=== PATIENT | male | born 1965 | race African-American/Black ===

== ENCOUNTER 2017-01-09 22:08 | Emergency (ER) | payer MEDICARE, OTHER ==
[~2017-01-09] VITALS: Ht 185.4 cm; Wt 102.5 kg
[~2017-01-09 22:08] MED LIST: ASPIRIN81 MG ORAL; ATENOLOL50 MG ORAL; AZITHROMYCIN250 MG ORAL; BIAXIN500 MG ORAL; CIPRO500 MG PO; COLACE100 MG PO; GOLYTELY4000 ML GT; IBUPROFEN600 MG ORAL; NKM; NORCO 10/3251 EA ORAL; NORVASC10 MG ORAL; NORVIR100 M2 ORAL; OXYCODONE HCL30 MG PO; PHENERGAN6.25 MG/5 ORAL; PREZISTA800 MG PO; SENNA LAX8.6 MG PO; TIVICAY50 MG ORAL; TRUVADA1 TAB PO; ZITHROMAX250 MG ORAL; [UNRECOGNIZED DRUG - REMARK]
[2017-01-09] MEDS ORDERED: FLONASE ALLERG9.9 ML NS (22:39)
--- NOTE | 2017-01-09 22:39 | Emergency Room Report ---
History of Present Illness General Chief Complaint: Upper Respiratory Illness Source: Patient Present Illness [facility] This is a 51-year-old male with a history HIV. CD4 count is 258. Viral load is undetectable. He presents with chief complaint of right nose and congestion. Onset yesterday. No fever chills but no nausea no vomiting. Worse with laying flat. Better when he stood up. No other complaint. Allergies: Coded Allergies: No Known Allergies (Verified Allergy, Unknown, 11/27/07) Patient History Past Medical History: see triage record, old chart reviewed, HIV Past Surgical History: none Pertinent Family History: none Social History: Reports: smoking Immunizations: other Reviewed Nursing Documentation: PMH: Agreed, PSxH: Agreed Nursing Documentation-PMH Past Medical History: No History, Except For Hx Cardiac Problems: Yes - HIV Hx Hypertension: Yes Hx Pacemaker: No Hx Asthma: No Hx COPD: No Hx Diabetes: No Hx Cancer: No Hx Gastrointestinal Problems: No Hx Dialysis: No Hx Neurological Problems: No Hx Cerebrovascular Accident: No Hx Seizures: No Review of Systems Eye: Denies: blurred vision, eye pain ENT: Reports: nose congestion, Denies: ear pain, throat swelling Respiratory: Reports: cough, Denies: shortness of breath Cardiovascular: Denies: chest pain, palpitations Gastrointestinal: Denies: abdominal pain, diarrhea, nausea, vomiting Musculoskeletal: Denies: back pain, joint pain Skin: Denies: rash Neurological: Denies: headache, numbness Endocrine: Denies: increased thirst, increased urine Hematologic/Lymphatic: Denies: easy bruising All Other Systems: negative except mentioned in HPI Physical Exam Vital Signs Date Time Temp Pulse Resp B/P Pulse Ox O2 Delivery O2 Flow Rate FiO2 01/09/17 22:15 97.9 85 16 168/109 100 Room Air vitals showed hypertension Sp02 EP Interpretation: reviewed, normal General Appearance: well appearing, no apparent distress, alert Head: normocephalic, atraumatic Eyes: bilateral eye EOMI, bilateral eye PERRL ENT: hearing grossly normal, normal pharynx, other - nasal turbinates with edema Neck: full range of motion, supple, no meningismus Respiratory: chest non-tender, lungs clear, normal breath sounds Cardiovascular #1: regular rate, rhythm, no murmur Gastrointestinal: normal bowel sounds, non tender, no mass, no organomegaly, no bruit, non-distended Musculoskeletal: back normal, gait/station normal, normal range of motion Psychiatric: mood/affect normal Skin: warm/dry Medical Decision Making Diagnostic Impression: Primary Impression: Upper respiratory infection Qualified Codes: J06.9 - Acute upper respiratory infection, unspecified; B97.89 - Other viral agents as the cause of diseases classified elsewhere Additional Impression: Hypertension Qualified Codes: I10 - Essential (primary) hypertension ER Course Patient with a viral illness. No evidence of bacterial infection. We'll discharge home. Patient is using Afrin. Told to stop. Last Vital Signs Date Time Temp Pulse Resp B/P Pulse Ox O2 Delivery O2 Flow Rate FiO2 01/09/17 22:15 97.9 85 16 168/109 100 Room Air Status: improved Disposition: HOME, SELF-CARE Condition: Stable Scripts Fluticasone Propionate (Flonase Allergy Relief) 9.9 Ml [place].susp 9.9 ML NS BID, #1 UNIT Prov: MAGO ANDERSON M.D. 01/09/17 Patient Instructions: Upper Respiratory Infection, Adult Additional Instructions: Stop using Afrin. Followup with your DrJuan in 7 days. Return if symptom worsen. MAGO ANDERSON M.D. Jan 09, 2017 22:39
[2017-01-09 22:40] VITALS: BP 168/109
[2017-01-09 22:47] VITALS: BP 168/109
== END 2017-01-09 22:47 | disposition home or self-care (01) ==
LOC: EMR 22:32
DX: J06.9 Acute upper respiratory infection, unspecified (principal); B97.89 Other viral agents as the cause of diseases classified elsewhere; I10 Essential (primary) hypertension; F17.200 Nicotine dependence, unspecified, uncomplicated
CPT/HCPCS: 99283

== ENCOUNTER 2017-02-17 19:41 | Emergency (ER) | payer MEDICARE, OTHER ==
[~2017-02-17] VITALS: Ht 185.4 cm; Wt 102.1 kg
[~2017-02-17 19:41] MED LIST changes: +FLONASE ALLERG9.9 ML NS
[2017-02-17 20:16] VITALS: BP 154/67
[2017-02-17] MEDS ORDERED: VIBRAMYCIN100 MG ORAL (20:39)
[2017-02-17] MEDS ORDERED: Lidocaine 1% MPF 10mg/ml 5ml ONE (20:51)
[2017-02-17 21:01] VITALS: BP 154/67
[2017-02-17 23:01] LABS: APPEARANCE,URINE CLEAR; KETONES,URINE NEGATIVE (NEGATIVE); LEUKOCYTE ESTERASE ,URINE NEGATIVE (NEGATIVE); NITRITE,URINE NEGATIVE (NEGATIVE); PH,URINE 5 (4.5-8.0); PROTEIN,URINE 3+ (NEGATIVE); UROBILINOGEN,URINE NORMAL MG/DL (0.0-1.0)
[2017-02-17 23:26] LABS: BACTERIA,URINE FEW /HPF; CALCIUM OXALATE CRYSTALS,UR MODERATE /LPF; RBC,URINE TNTC /HPF (0 - 0); SQUAMOUS EPITHELIAL CELL,UR FEW /LPF (NONE/OCC); WBC,URINE 0-2 /HPF (0 - 0)
--- NOTE | 2017-02-18 13:31 | Emergency Room Report ---
History of Present Illness General Chief Complaint: Male Urogenital Problems Source: Patient Present Illness HPI Patient is a 51-year-old male who presented after increased blood in ejaculate. The patient stated that he was recently having unprotected sex when he had noticed there was some blood in his ejaculate. Patient had had not been having urinary symptoms prior to this. He denied any hematuria. He denied any pain. Patient prior history of HIV. Patient stated that he was being followed by Dr. Lozano. He denied any fever. He denied dysuria or urinary frequency or hesitancy. The patient had not noticed any penile injury or lesions. Allergies: Coded Allergies: No Known Allergies (Verified Allergy, Unknown, 11/27/07) Patient History Past Medical History: see triage record Reviewed Nursing Documentation: PMH: Agreed, PSxH: Agreed Nursing Documentation-PMH Past Medical History: No History, Except For Hx Cardiac Problems: Yes - HIV Hx Hypertension: Yes Hx Pacemaker: No Hx Asthma: No Hx COPD: No Hx Diabetes: No Hx Cancer: No Hx Gastrointestinal Problems: No Hx Dialysis: No Hx Neurological Problems: No Hx Cerebrovascular Accident: No Hx Seizures: No Review of Systems All Other Systems: negative except mentioned in HPI Physical Exam Vital Signs Date Time Temp Pulse Resp B/P Pulse Ox O2 Delivery O2 Flow Rate FiO2 02/17/17 19:45 98.1 91 15 159/69 98 Room Air General Appearance: well appearing, no apparent distress, alert, GCS 15 Head: normocephalic, atraumatic ENT: hearing grossly normal, normal voice Neck: full range of motion, supple Respiratory: no respiratory distress, speaking full sentences Gastrointestinal: normal inspection Genitourinary: normal inspection, penis normal - uncircumcised Musculoskeletal: no calf tenderness Neurologic: normal inspection, alert, oriented x3, responsive, barrel cooper III-XII nml as tested, motor strength/tone normal, normal gait Psychiatric: normal inspection, mood/affect normal Skin: no rash Medical Decision Making Diagnostic Impression: Primary Impression: Prostatitis, acute ER Course Patient presented for blood in ejaculate. Differential diagnosis included was not limited to prostatitis, torsion, ureteral stone, urinary tract infection, benign prostatic hypertrophy, cancer. The patient was noted to have recent unprotected intercourse. Patient is being treated with medications for possible sexual transmitted infection. Patient is advised followup with urology for further evaluation of blood in ejaculate. The patient is advised to return if he began having increased pain fever or other concerns Labs Test 02/17/17 20:18 Urine Color Yellow Urine Appearance Clear Urine pH 5 (4.5-8.0) Urine Specific [place] 1.025 (1.005-1.035) Urine Protein 3+ (NEGATIVE) Urine Glucose (UA) Negative (NEGATIVE) Urine Ketones Negative (NEGATIVE) Urine Occult Blood 5+ (NEGATIVE) Urine Nitrite Negative (NEGATIVE) Urine Bilirubin Negative (NEGATIVE) Urine Urobilinogen Normal MG/DL (0.0-1.0) Urine Leukocyte Esterase Negative (NEGATIVE) Urine RBC Tntc /HPF (0 - 0) Urine WBC 0-2 /HPF (0 - 0) Urine Squamous Epithelial Cells Few /LPF (NONE/OCC) Urine Calcium Oxalate Crystals Moderate /LPF (NONE) Urine Bacteria Few /HPF (NONE) Last Vital Signs Date Time Temp Pulse Resp B/P Pulse Ox O2 Delivery O2 Flow Rate FiO2 02/17/17 21:01 97.9 87 17 154/67 98 Room Air Status: improved Disposition: HOME, SELF-CARE Condition: Stable Scripts Doxycycline Hyclate* (VIBRAMYCIN*) 100 Mg Capsule 100 MG ORAL EVERY 12 HOURS, #28 CAP 0 Refills Prov: Pernell Banks 02/17/17 Referrals: NON PHYSICIAN (PCP) Patient Instructions: Prostatitis, [id number] Pernell Banks Feb 18, 2017 13:31
== END 2017-02-17 21:02 | disposition home or self-care (01) ==
LOC: EMR 20:01
DX: N41.0 Acute prostatitis (principal); I10 Essential (primary) hypertension
CPT/HCPCS: 81003; 96372; 99283; J0696

== ENCOUNTER 2017-09-10 23:46 | Emergency (ER) | payer MEDICARE, OTHER ==
[~2017-09-10] VITALS: Ht 185.4 cm; Wt 99.8 kg
[~2017-09-10 23:46] MED LIST changes: +VIBRAMYCIN100 MG ORAL
[2017-09-10 23:55] VITALS: BP 116/95
[2017-09-10] MEDS ORDERED: NKM (23:56)
[2017-09-11] MEDS ORDERED: Ketorolac 60mg Inj IM ONE (00:45)
[2017-09-11 01:31] LABS: APPEARANCE,URINE CLEAR; KETONES,URINE NEGATIVE (NEGATIVE); LEUKOCYTE ESTERASE ,URINE NEGATIVE (NEGATIVE); NITRITE,URINE NEGATIVE (NEGATIVE); PH,URINE 5 (4.5-8.0); PROTEIN,URINE 2+ (NEGATIVE); UROBILINOGEN,URINE 1 MG/DL (0.0-1.0)
[2017-09-11] MEDS ORDERED: BACTRIM-DS1 EA ORAL (01:32)
[2017-09-11] MEDS ORDERED: KEFLEX500 MG ORAL (01:32)
[2017-09-11] MEDS ORDERED: LIDOCAINE700 M1 TP (01:35)
[2017-09-11 01:45] VITALS: BP 116/95
[2017-09-11 01:47] LABS: BACTERIA,URINE OCCASIONAL /HPF; MUCUS,URINE FEW /LPF (NONE/OCC); RBC,URINE 0-2 /HPF (0 - 0); SQUAMOUS EPITHELIAL CELL,UR OCCASIONAL /LPF (NONE/OCC); WBC,URINE 0-2 /HPF (0 - 0)
--- NOTE | 2017-09-11 06:50 | Emergency Room Report ---
History of Present Illness General Chief Complaint: Lower Back Pain or Injury Source: Patient Present Illness HPI Patient said it-year-old male who presented after increased low back pain as well as right elbow pain. Patient reported having gradual onset of symptoms. He had prior history of HIV. He denied any fever. He reported having increased discomfort to his right elbow which had gradual onset. He denied any recent trauma. The patient reports having undetectable viral load as well as adequate T-cell count he cannot given number. Patient states that he had been having pain to his elbow the which is worse with movement. The patient denies any bowel or bladder dysfunction. He denies any numbness or weakness to his lower extremities Allergies: Coded Allergies: No Known Allergies (Verified Allergy, Unknown, 11/27/07) Patient History Past Medical History: see triage record Reviewed Nursing Documentation: PMH: Agreed, PSxH: Agreed Nursing Documentation-PMH Past Medical History: No History, Except For Hx Hypertension: Yes Hx Pacemaker: No Hx Asthma: No Hx COPD: No Hx Diabetes: No Hx Cancer: No Hx Gastrointestinal Problems: No Hx Dialysis: No Hx Neurological Problems: No Hx Cerebrovascular Accident: No Hx Seizures: No Review of Systems All Other Systems: negative except mentioned in HPI Physical Exam Vital Signs Date Time Temp Pulse Resp B/P (MAP) Pulse Ox O2 Delivery O2 Flow Rate FiO2 09/10/17 23:53 98.8 91 18 116/95 95 Room Air General Appearance: well appearing, no apparent distress, alert, GCS 15 Head: normocephalic, atraumatic ENT: hearing grossly normal, normal voice Neck: full range of motion, supple Respiratory: no respiratory distress, speaking full sentences Cardiovascular #1: normal inspection, normal peripheral pulses Gastrointestinal: normal inspection, normal bowel sounds, non tender, soft Musculoskeletal: normal inspection, no calf tenderness Neurologic: normal inspection, alert, oriented x3, responsive, manufacturing analyst III-XII nml as tested, normal gait Psychiatric: mood/affect normal Skin: other - right elbow skin induration, erythema Medical Decision Making Diagnostic Impression: Primary Impression: Low back pain Additional Impression: Cellulitis of right elbow ER Course Patient presented for back pain. Differential diagnosis included but was not limited to herniated disc, cauda equina syndrome, abdominal aortic aneurysm, perforated ulcer, spinal epidural abscess, spinal stenosis, lumbar fracture, metastatic lesion, pyelonephritis. The patient was noted to have evidence of cellulitis to his right upper extremity near the elbow consistent with cellulitis versus early abscess. There does not appear to be any fluctuance at this time. The patient was given prescription for oral antibiotics. Patient was advised to have the wound rechecked in the next one to 2 days. The patient is advised to return if she began having increased difficulty with urination persistent vomiting high fevers or other concerns. Last Vital Signs Date Time Temp Pulse Resp B/P (MAP) Pulse Ox O2 Delivery O2 Flow Rate FiO2 09/11/17 01:45 95 18 116/95 95 09/10/17 23:55 98.8 Room Air Status: improved Disposition: HOME, SELF-CARE Condition: Stable Scripts Lidocaine (Lidocaine) 1 Each Adh..patch 700 MG TP DAILY, #10 PATCH Prov: Pernell Banks 09/11/17 Cephalexin* (KEFLEX*) 500 Mg Capsule 500 MG ORAL Q6H, #28 CAP 0 Refills Prov: Pernell Banks 09/11/17 Trimethoprim/Sulfamethoxazole (Bactrim Ds Tablet) 1 Each Tablet 1 TAB ORAL TWICE A DAY, #14 TAB Prov: Pernell Banks 09/11/17 Referrals: NON PHYSICIAN (PCP) Patient Instructions: Cellulitis, Lumbosacral Strain Pernell Banks Sep 11, 2017 06:50
== END 2017-09-11 01:45 | disposition home or self-care (01) ==
LOC: EMR 09-11 01:01
DX: M54.5 Low back pain (principal); L03.113 Cellulitis of right upper limb; I10 Essential (primary) hypertension
CPT/HCPCS: 81003; 96372; 99284

== ENCOUNTER 2017-09-13 23:09 | Emergency (ER) | payer MEDICARE, OTHER ==
[~2017-09-13] VITALS: Ht 185.4 cm; Wt 104.3 kg
[~2017-09-13 23:09] MED LIST changes: +BACTRIM-DS1 EA ORAL; +KEFLEX500 MG ORAL; +LIDOCAINE700 M1 TP
[2017-09-13] MEDS ORDERED: BARACLUDE0.5 MG ORAL (23:35)
[2017-09-13 23:45] VITALS: BP 157/89
[2017-09-14 00:21] LABS: EOSINOPHILS % (AUTO) 0.9 % (0.0-3.0); LYMPHOCYTES % (AUTO) 32.1 % (20.0-45.0); MEAN CORPUSCULAR HEMOGLOBIN 30.7 PG (27.0-31.0); MEAN CORPUSCULAR HGB CONC 33.4 G/DL (32.0-36.0); MEAN CORPUSCULAR VOLUME 92 FL (80-99); MEAN PLATELET VOLUME 7.8 FL (6.5-10.1); NEUTROPHILS % (AUTO) 59.9 % (45.0-75.0); PLATELET COUNT 266 K/UL (150-450); RED BLOOD COUNT 4.98 M/UL (4.70-6.10); RED CELL DISTRIBUTION WIDTH 13.6 % (11.6-14.8); WHITE BLOOD COUNT 6.8 K/UL (4.8-10.8)
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
[2017-09-14 00:54] LABS: ALANINE AMINOTRANSFERASE 28 U/L (12-78); ALBUMIN/GLOBULIN RATIO 0.9 (1.0-2.7); ANION GAP 12 mmol/L (5-15); ASPARTATE AMINO TRANSFERASE 25 U/L (15-37); CALCIUM 9.3 MG/DL (8.5-10.1); CARBON DIOXIDE 23 MMOL/L (21-32); CHLORIDE 105 MMOL/L (98-107); CREATININE 1.9 MG/DL (0.55-1.30); GLOMERULAR FILTRATION RATE 45.3 mL/min (>60); LIPASE 134 U/L (73-393); POTASSIUM 3.9 MMOL/L (3.5-5.1); SODIUM 140 MMOL/L (136-145); TOTAL PROTEIN 7.8 G/DL (6.4-8.2)
[2017-09-14 01:01] LABS: APPEARANCE,URINE CLEAR; KETONES,URINE NEGATIVE (NEGATIVE); LEUKOCYTE ESTERASE ,URINE NEGATIVE (NEGATIVE); NITRITE,URINE NEGATIVE (NEGATIVE); PH,URINE 5 (4.5-8.0); PROTEIN,URINE 1+ (NEGATIVE); UROBILINOGEN,URINE 1 MG/DL (0.0-1.0)
[2017-09-14 01:18] LABS: BACTERIA,URINE OCCASIONAL /HPF; RBC,URINE 0-2 /HPF (0 - 0); SQUAMOUS EPITHELIAL CELL,UR OCCASIONAL /LPF (NONE/OCC); WBC,URINE 0-2 /HPF (0 - 0)
[2017-09-14 01:45] VITALS: BP 152/86
[2017-09-14 03:45] VITALS: BP 144/77
[2017-09-14] MEDS ORDERED: COLACE100 MG ORAL (03:56)
[2017-09-14] MEDS ORDERED: SENNA LAXATIVE8.6 MG PO (03:56)
[2017-09-14 04:00] VITALS: BP 144/77
[2017-09-14] MEDS ORDERED: Fleet's Enema 133ml RECTAL ONE (04:00)
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
--- NOTE | 2017-09-16 18:41 | Cardiology Report ---
APPROVED REPORT EKG Measurement Heart [id number] Normal sinus rhythm Possible Left atrial enlargement Left ventricular hypertrophy T wave abnormality, consider lateral ischemia Abnormal ECG
== END 2017-09-14 04:00 | disposition home or self-care (01) ==
LOC: EMR 23:50
DX: K59.00 Constipation, unspecified (principal); I10 Essential (primary) hypertension; K80.20 Calculus of gallbladder without cholecystitis without obstruction
CPT/HCPCS: 36415; 74176; 80053; 81003; 83690; 84484; 85025; 93005; 99284

== ENCOUNTER 2018-09-28 03:00 | Inpatient (IN) | payer MEDICARE, OTHER ==
[~2018-09-28] VITALS: Ht 185.4 cm; Wt 104.3 kg
[~2018-09-28 03:00] MED LIST changes: +BARACLUDE0.5 MG ORAL; +COLACE100 MG ORAL; +SENNA LAXATIVE8.6 MG PO
[2018-09-28 03:23] VITALS: BP 165/107
[2018-09-28] MEDS ORDERED: cefTRIAXone 1 GM in NS 55 ML IVPB ONE (03:30)
--- NOTE | 2018-09-28 03:45 | Emergency Room Report ---
History of Present Illness General Chief Complaint: Dyspnea/Respdistress Source: Patient Present Illness HPI Patient started having a sore throat earlier. He went to see a movie. He went back home started having shortness of breath when he went to bed. He felt that he was suffocating. He felt his heart pounding. There is tingling around his mouth. Although sensations made him come to be evaluated. He denies having hyperventilation in the past. He was quite concerned and scared at the moment. He feels better now. The throat is still sore. He's also been coughing up yellow phlegm. The patient is HIV positive and is taking medication. He states his viral load is non-detected. The patient has a history of hypertension and did not take his medication today. No recent cardiac evaluations. No NVD, dysuria, rashes. Allergies: Coded Allergies: No Known Allergies (Verified Allergy, Unknown, 11/27/07) Patient History Past Medical History: see triage record Social History: Denies: smoking Social History Narrative at home Reviewed Nursing Documentation: PMH: Agreed; PSxH: Agreed Nursing Documentation-PMH Hx Hypertension: Yes Hx Pacemaker: No Hx Asthma: No Hx COPD: No Hx Diabetes: No Hx Cancer: No Hx Gastrointestinal Problems: No Hx Dialysis: No Hx Neurological Problems: Yes - HIV Hx Cerebrovascular Accident: No Hx Seizures: No Review of Systems All Other Systems: negative except mentioned in HPI Physical Exam Vital Signs Date Time Temp Pulse Resp B/P (MAP) Pulse Ox O2 Delivery O2 Flow Rate FiO2 09/28/18 03:02 97.9 91 18 187/123 94 Room Air Sp02 EP Interpretation: reviewed, normal General Appearance: well appearing, no apparent distress, GCS 15 Head: normocephalic Eyes: bilateral eye normal inspection, bilateral eye PERRL ENT: moist mucus membranes Neck: supple Respiratory: lungs clear, normal breath sounds Cardiovascular #1: regular rate, rhythm Cardiovascular #2: 2+ radial (R) Gastrointestinal: normal inspection, normal bowel sounds, non tender, no mass, non-distended Genitourinary: no CVA tenderness Musculoskeletal: back normal, gait/station normal, normal range of motion Neurologic: alert, oriented x3, grossly normal Psychiatric: mood/affect normal Skin: normal inspection, warm/dry Medical Decision Making Diagnostic Impression: Primary Impression: Dyspnea Qualified Codes: R06.00 - Dyspnea, unspecified Additional Impressions: ACS (acute coronary syndrome) Strep pharyngitis HIV (human immunodeficiency virus infection) Renal insufficiency ER Course Patient presents with dyspnea and productive cough and sore throat. I differential includes pneumonia, bronchitis, pharyngitis, viral syndrome, anxiety and hyperventilation. Evaluation will be with EKG, chest x-ray and labs. The patient will be treated with Rocephin as the pharyngitis clearly looks like Streptococcus. Many of the symptoms have improved and the patient's not tachycardic and oxygen saturation suggests this is not a pulmonary embolus. EKG normal sinus rhythm with voltage criteria for left ventricular hypertrophy and ST and T-wave abnormality with T inversions inferior laterally. Normal intervals. This EKG is different from 09/13/17. There were no ST inversions inferiorly. Due to this and his presenting complaints, needs to have ACS r/o. Initial troponin neg (0.33). CXR clear. Discussed with Dr. Aguilar - information technology intern for Dr. Cleveland. Admit tele. BP still high after 1st metoprolol. Second given. Labs Test 09/28/18 03:40 09/28/18 04:11 09/28/18 04:34 09/28/18 09:00 White Blood Count 5.6 K/UL (4.8-10.8) 4.4 K/UL (4.8-10.8) Red Blood Count 5.33 M/UL (4.70-6.10) 5.03 M/UL (4.70-6.10) Hemoglobin 15.8 G/DL (14.2-18.0) 14.8 G/DL (14.2-18.0) Hematocrit 45.1 % (42.0-52.0) 43.4 % (42.0-52.0) Mean Corpuscular Volume 85 FL (80-99) 86 FL (80-99) Mean Corpuscular Hemoglobin 29.7 PG (27.0-31.0) 29.4 PG (27.0-31.0) Mean Corpuscular Hemoglobin Concent 35.0 G/DL (32.0-36.0) 34.1 G/DL (32.0-36.0) Red Cell Distribution Width 12.5 % (11.6-14.8) 12.7 % (11.6-14.8) Platelet Count 245 K/UL (150-450) 235 K/UL (150-450) Mean Platelet Volume 7.7 FL (6.5-10.1) 7.3 FL (6.5-10.1) Neutrophils (%) (Auto) 43.4 % (45.0-75.0) 44.3 % (45.0-75.0) Lymphocytes (%) (Auto) 45.0 % (20.0-45.0) 43.9 % (20.0-45.0) Monocytes (%) (Auto) 8.5 % (1.0-10.0) 8.2 % (1.0-10.0) Eosinophils (%) (Auto) 1.7 % (0.0-3.0) 2.3 % (0.0-3.0) Basophils (%) (Auto) 1.4 % (0.0-2.0) 1.3 % (0.0-2.0) Sodium Level 139 MMOL/L (136-145) Potassium Level 3.4 MMOL/L (3.5-5.1) Chloride Level 106 MMOL/L (98-107) Carbon Dioxide Level 27 MMOL/L (21-32) Anion Gap 6 mmol/L (5-15) Blood Urea Nitrogen 19 mg/dL (7-18) Creatinine 1.8 MG/DL (0.55-1.30) Estimat Glomerular Filtration Rate 48.1 mL/min (>60) Glucose Level 118 MG/DL (74-106) Calcium Level 9.2 MG/DL (8.5-10.1) Total Bilirubin 0.4 MG/DL (0.2-1.0) Aspartate Amino Transf (AST/SGOT) 20 U/L (15-37) Alanine Aminotransferase (ALT/SGPT) 27 U/L (12-78) Alkaline Phosphatase 66 U/L (46-116) Total Creatine Kinase 407 U/L (26-308) Troponin I 0.033 ng/mL (0.000-0.056) 0.020 ng/mL (0.000-0.056) C-Reactive Protein, Quantitative < 0.4 mg/dL (0.00-0.90) Pro-B-Type Natriuretic Peptide 125 pg/mL (0-125) Total Protein 7.6 G/DL (6.4-8.2) Albumin 3.8 G/DL (3.4-5.0) Globulin 3.8 g/dL Albumin/Globulin Ratio 1.0 (1.0-2.7) Prothrombin Time 11.1 SEC (9.30-11.50) Prothromb Time International Ratio 1.1 (0.9-1.1) Activated Partial Thromboplast Time 29 SEC (23-33) Urine Color Pale yellow Urine Appearance Clear Urine pH 5 (4.5-8.0) Urine Specific [place] 1.020 (1.005-1.035) Urine Protein Negative (NEGATIVE) Urine Glucose (UA) Negative (NEGATIVE) Urine Ketones Negative (NEGATIVE) Urine Blood Negative (NEGATIVE) Urine Nitrite Negative (NEGATIVE) Urine Bilirubin Negative (NEGATIVE) Urine Urobilinogen Normal MG/DL (0.0-1.0) Urine Leukocyte Esterase Negative (NEGATIVE) Urine Opiates Screen Negative (NEGATIVE) Urine Barbiturates Screen Negative (NEGATIVE) Phencyclidine (PCP) Screen Negative (NEGATIVE) Urine Amphetamines Screen Negative (NEGATIVE) Urine Benzodiazepines Screen Negative (NEGATIVE) Urine Cocaine Screen Negative (NEGATIVE) Urine Marijuana (THC) Screen Negative (NEGATIVE) Test 09/28/18 12:00 09/29/18 06:18 Lactate Dehydrogenase 179 U/L (81-234) Sodium Level 142 MMOL/L (136-145) Potassium Level 4.0 MMOL/L (3.5-5.1) Chloride Level 106 MMOL/L (98-107) Carbon Dioxide Level 24 MMOL/L (21-32) Anion Gap 12 mmol/L (5-15) Blood Urea Nitrogen 18 mg/dL (7-18) Creatinine 1.8 MG/DL (0.55-1.30) Estimat Glomerular Filtration Rate 48.1 mL/min (>60) Glucose Level 92 MG/DL (74-106) Calcium Level 9.0 MG/DL (8.5-10.1) Troponin I 0.017 ng/mL (0.000-0.056) EKG Diagnostic Results Rate: normal Rhythm: NSR ST Segments: no acute changes - ST inversions inferolateral, LVH Rhythm Strip Diag. Results EP Interpretation: yes Rhythm: NSR, no PVC's, no ectopy Chest X-Ray Diagnostic Results Chest X-Ray Diagnostic Results : Chest X-Ray Ordered: Yes # of Views/Limited/Complete: 1 View Indication: Shortness of Breath EP Interpretation: Yes Interpretation: no consolidation, no effusion, no pneumothorax Impression: No acute disease Electronically Signed by: Electronically signed by Rodger Morse MD Status: improved Disposition: ADMITTED INPATIENT Condition: Serious Referrals: NOT CHOSEN IPA/,REFERRING (PCP) Rodger Morse MD Sep 28, 2018 03:45
[2018-09-28 03:53] LABS: BASOPHILS % (AUTO) 1.4 % (0.0-2.0); EOSINOPHILS % (AUTO) 1.7 % (0.0-3.0); HEMATOCRIT 45.1 % (42.0-52.0); HEMOGLOBIN 15.8 G/DL (14.2-18.0); MEAN CORPUSCULAR VOLUME 85 FL (80-99); MONOCYTES % (AUTO) 8.5 % (1.0-10.0); NEUTROPHILS % (AUTO) 43.4 % (45.0-75.0); PLATELET COUNT 245 K/UL (150-450); RED BLOOD COUNT 5.33 M/UL (4.70-6.10); RED CELL DISTRIBUTION WIDTH 12.5 % (11.6-14.8); WHITE BLOOD COUNT 5.6 K/UL (4.8-10.8)
[2018-09-28] MEDS ORDERED: Metoprolol 5mg/5ml Inj IVP STA ×2 (03:58→04:47)
[2018-09-28] MEDS ORDERED: Nitroglycerin 2% oint pkt TOPIC ONE (04:00)
[2018-09-28 04:09] LABS: ANION GAP 6 mmol/L (5-15); BLOOD UREA NITROGEN 19 mg/dL (7-18); CALCIUM 9.2 MG/DL (8.5-10.1); CARBON DIOXIDE 27 MMOL/L (21-32); CHLORIDE 106 MMOL/L (98-107); CREATININE 1.8 MG/DL (0.55-1.30); POTASSIUM 3.4 MMOL/L (3.5-5.1); SODIUM 139 MMOL/L (136-145)
[2018-09-28 04:20] LABS: ALANINE AMINOTRANSFERASE 27 U/L (12-78); ALBUMIN 3.8 G/DL (3.4-5.0); ALKALINE PHOSPHATASE 66 U/L (46-116); ASPARTATE AMINO TRANSFERASE 20 U/L (15-37); BILIRUBIN,TOTAL 0.4 MG/DL (0.2-1.0); CREATINE KINASE 407 U/L (26-308)
--- NOTE | 2018-09-28 04:21 | Diagnostic Imaging Report ---
EXAM: XR Chest, 1 View CLINICAL HISTORY: DYSPNEA TECHNIQUE: Frontal view of the chest. COMPARISON: No relevant prior studies available. FINDINGS: Lungs: Unremarkable. No consolidation. Pleural space: Unremarkable. No pneumothorax. Heart: Unremarkable. No cardiomegaly. Mediastinum: Unremarkable. Bones/joints: Unremarkable. Soft tissues: Possible retained metallic foreign bodies are seen projecting over the left chest. IMPRESSION: No acute cardiopulmonary findings. Possible retained metallic foreign bodies are seen projecting over the left chest.
[2018-09-28 04:41] LABS: INR 1.1 (0.9-1.1)
[2018-09-28 04:46] LABS: APPEARANCE,URINE CLEAR; BILIRUBIN, URINE NEGATIVE (NEGATIVE); COLOR,URINE PALE YELLOW; GLUCOSE, URINE (UA) NEGATIVE (NEGATIVE); KETONES,URINE NEGATIVE (NEGATIVE); LEUKOCYTE ESTERASE ,URINE NEGATIVE (NEGATIVE); NITRITE,URINE NEGATIVE (NEGATIVE); PH,URINE 5 (4.5-8.0); PROTEIN,URINE NEGATIVE (NEGATIVE); UROBILINOGEN,URINE NORMAL MG/DL (0.0-1.0)
[2018-09-28] MEDS ORDERED: Nitroglycerin Subl 0.4mg tab SL PRN (05:15)
[2018-09-28] MEDS ORDERED: Heparin 25,000u/D5W 500ml 500 ML IV SCH (05:15)
[2018-09-28] MEDS ORDERED: Albuterol/Ipratropium 3ml neb HHN PRN (05:15)
[2018-09-28 05:20] VITALS: BP 156/89
[2018-09-28 08:00] VITALS: BP 154/96
[2018-09-28] MEDS: Heparin 5000 units/ml inj SUBQ SCH ×2 (08:49→20:43)
[2018-09-28 10:08] LABS: BASOPHILS % (AUTO) 1.3 % (0.0-2.0); EOSINOPHILS % (AUTO) 2.3 % (0.0-3.0); HEMATOCRIT 43.4 % (42.0-52.0); HEMOGLOBIN 14.8 G/DL (14.2-18.0); LYMPHOCYTES % (AUTO) 43.9 % (20.0-45.0); MEAN CORPUSCULAR VOLUME 86 FL (80-99); MONOCYTES % (AUTO) 8.2 % (1.0-10.0); NEUTROPHILS % (AUTO) 44.3 % (45.0-75.0); PLATELET COUNT 235 K/UL (150-450); RED BLOOD COUNT 5.03 M/UL (4.70-6.10); RED CELL DISTRIBUTION WIDTH 12.7 % (11.6-14.8); WHITE BLOOD COUNT 4.4 K/UL (4.8-10.8)
--- NOTE | 2018-09-28 11:36 | Infectious Diseases Prog Note ---
Assessment/Plan Assessment/Plan Full consult to follow: A) 1) sob, cp, congestion, pharyngitis, ? cap 2) EKG changes, rule out mi 3) hiv, ? cd4, ? viral load P) 1) rocephin 2) check f/u chest x-ray, ldh, labs, throat culture, cd4, viral load 3) cardiology work-up 4) d/w Dr. Herrera 5) thank you Subjective Allergies: Coded Allergies: No Known Allergies (Verified Allergy, Unknown, 11/27/07) Objective Vital Signs Last 24 Hour Vital Signs Date Time Temp Pulse Resp B/P (MAP) Pulse Ox O2 Delivery O2 Flow Rate FiO2 09/28/18 09:11 Room Air 09/28/18 08:00 79 16 Room Air 21 09/28/18 08:00 97.9 63 18 154/96 (115) 96 09/28/18 08:00 65 09/28/18 06:19 Room Air 09/28/18 06:10 Room Air 09/28/18 05:20 97.9 84 18 153/108 94 Room Air 09/28/18 05:20 97.2 65 18 156/89 (111) 98 09/28/18 05:04 81 155/109 09/28/18 04:22 85 166/107 09/28/18 04:22 166/107 09/28/18 03:23 97.9 83 18 165/107 94 Room Air 09/28/18 03:23 85 18 Room Air 09/28/18 03:02 97.9 91 18 187/123 94 Room Air Height (Feet): 6 Height (Inches): 1.00 Weight (Pounds): 230 Laboratory Tests Test 09/28/18 03:40 09/28/18 04:11 09/28/18 04:34 09/28/18 09:00 White Blood Count 5.6 K/UL (4.8-10.8) 4.4 K/UL (4.8-10.8) L Red Blood Count 5.33 M/UL (4.70-6.10) 5.03 M/UL (4.70-6.10) Hemoglobin 15.8 G/DL (14.2-18.0) 14.8 G/DL (14.2-18.0) Hematocrit 45.1 % (42.0-52.0) 43.4 % (42.0-52.0) Mean Corpuscular Volume 85 FL (80-99) 86 FL (80-99) Mean Corpuscular Hemoglobin 29.7 PG (27.0-31.0) 29.4 PG (27.0-31.0) Mean Corpuscular Hemoglobin Concent 35.0 G/DL (32.0-36.0) 34.1 G/DL (32.0-36.0) Red Cell Distribution Width 12.5 % (11.6-14.8) 12.7 % (11.6-14.8) Platelet Count 245 K/UL (150-450) 235 K/UL (150-450) Mean Platelet Volume 7.7 FL (6.5-10.1) 7.3 FL (6.5-10.1) Neutrophils (%) (Auto) 43.4 % (45.0-75.0) L 44.3 % (45.0-75.0) L Lymphocytes (%) (Auto) 45.0 % (20.0-45.0) 43.9 % (20.0-45.0) Monocytes (%) (Auto) 8.5 % (1.0-10.0) 8.2 % (1.0-10.0) Eosinophils (%) (Auto) 1.7 % (0.0-3.0) 2.3 % (0.0-3.0) Basophils (%) (Auto) 1.4 % (0.0-2.0) 1.3 % (0.0-2.0) Sodium Level 139 MMOL/L (136-145) Potassium Level 3.4 MMOL/L (3.5-5.1) L Chloride Level 106 MMOL/L (98-107) Carbon Dioxide Level 27 MMOL/L (21-32) Anion Gap 6 mmol/L (5-15) Blood Urea Nitrogen 19 mg/dL (7-18) H Creatinine 1.8 MG/DL (0.55-1.30) H Estimat Glomerular Filtration Rate 48.1 mL/min (>60) Glucose Level 118 MG/DL (74-106) H Calcium Level 9.2 MG/DL (8.5-10.1) Total Bilirubin 0.4 MG/DL (0.2-1.0) Aspartate Amino Transf (AST/SGOT) 20 U/L (15-37) Alanine Aminotransferase (ALT/SGPT) 27 U/L (12-78) Alkaline Phosphatase 66 U/L (46-116) Total Creatine Kinase 407 U/L (26-308) H Troponin I 0.033 ng/mL (0.000-0.056) 0.020 ng/mL (0.000-0.056) C-Reactive Protein, Quantitative < 0.4 mg/dL (0.00-0.90) Pro-B-Type Natriuretic Peptide 125 pg/mL (0-125) Total Protein 7.6 G/DL (6.4-8.2) Albumin 3.8 G/DL (3.4-5.0) Globulin 3.8 g/dL Albumin/Globulin Ratio 1.0 (1.0-2.7) Prothrombin Time 11.1 SEC (9.30-11.50) Prothromb Time International Ratio 1.1 (0.9-1.1) Activated Partial Thromboplast Time 29 SEC (23-33) Urine Color Pale yellow Urine Appearance Clear Urine pH 5 (4.5-8.0) Urine Specific [place] 1.020 (1.005-1.035) Urine Protein Negative (NEGATIVE) Urine Glucose (UA) Negative (NEGATIVE) Urine Ketones Negative (NEGATIVE) Urine Blood Negative (NEGATIVE) Urine Nitrite Negative (NEGATIVE) Urine Bilirubin Negative (NEGATIVE) Urine Urobilinogen Normal MG/DL (0.0-1.0) Urine Leukocyte Esterase Negative (NEGATIVE) Urine Opiates Screen Negative (NEGATIVE) Urine Barbiturates Screen Negative (NEGATIVE) Phencyclidine (PCP) Screen Negative (NEGATIVE) Urine Amphetamines Screen Negative (NEGATIVE) Urine Benzodiazepines Screen Negative (NEGATIVE) Urine Cocaine Screen Negative (NEGATIVE) Urine Marijuana (THC) Screen Negative (NEGATIVE) Current Medications Medications (Trade) Dose Ordered Sig/Paula Route PRN Reason Start Time Stop Time Status Last Admin Dose Admin Acetaminophen (Tylenol) 650 mg Q4H PRN ORAL Mild Pain (Pain Scale 1-3) 09/28/18 05:15 12 05:14 Albuterol/ Ipratropium (Albuterol/ Ipratropium) 3 ml NEEDED PRN HHN Shortness of Breath 09/28/18 05:15 10/03/18 05:14 Heparin Sodium (Porcine) (Heparin 5000 units/ml) 5,000 units EVERY 12 HOURS SUBQ 09/28/18 09:00 10/28/18 08:59 09/28/18 08:49 Nitroglycerin (Ntg) 0.4 mg Q5M PRN SL Prn Chest Pain 09/28/18 05:15 10/28/18 05:14 Sodium Chloride 1,000 ml @ 100 mls/hr Q10H IV 09/28/18 08:45 10/28/18 08:44 09/28/18 08:47 Digna Naidu MD Sep 28, 2018 11:36
[2018-09-28] MEDS ORDERED: Ritonavir 100mg tab ORAL SCH (11:45)
[2018-09-28] MEDS ORDERED: Dolutegravir Sodium 50mg tab ORAL SCH (11:45)
[2018-09-28 11:55] VITALS: BP 151/90
--- NOTE | 2018-09-28 12:27 | History and Physical ---
History of Present Illness General Date patient seen: Sep 28, 2018 Time patient seen: 13:00 Reason for Hospitalization: Dyspnea/Respdistress Present Illness HPI 52 yo AA Male PMH of HTN, and HIV presented for SOB and cough. Patient states that he was at the movies yesterday when he began having a coughing fit and admits to sputum. Patient also noted shortness of breath and MEREDITH. Patient deneis fevers, chills, diarrhea, abd pain, dysuria. He has not chest pain now or at the time of the event that brought him in. He recently had a follow up with his PCP and said everything was stable at that time. Patient admits to having had a cardiac cath at [facility] many years ago and did not require any intervention. Allergies: Coded Allergies: No Known Allergies (Verified Allergy, Unknown, 11/27/07) Medication History Scheduled Darunavir Ethanolate (Prezista), 800 MG PO DAILY, (Reported) Docusate Sodium* (Colace*), 100 MG ORAL DAILY Dolutegravir Sodium (Tivicay), 50 MG ORAL DAILY, (Reported) Emtricitabine/Tenofovir (Truvada 200 mg-300 mg Tablet), 300 MG PO DAILY, ( Reported) Entecavir* (Baraclude*), 1 MG ORAL DAILY, (Reported) Fluticasone Propionate (Flonase Allergy Relief), 9.9 ML NS BID Lidocaine (Lidocaine), 700 MG TP DAILY No Known Medications* (NKM - No Known Medications*), 0 ., (Reported) No Known Medications* (NKM - No Known Medications*), 0 ., (Reported) Ritonavir (Norvir), 100 MG ORAL DAILY, (Reported) Sennosides (Senna Laxative), 8.6 MG PO DAILY Miscellaneous Medications [unknown b/p med], (Reported) Discontinued Medications Azithromycin* (Zithromax*), 250 MG ORAL DAILY Discontinued Reason: Therapy completed Cephalexin* (Keflex*), 500 MG ORAL Q6H Discontinued Reason: Therapy completed Doxycycline Hyclate* (Vibramycin*), 100 MG ORAL EVERY 12 HOURS Discontinued Reason: Therapy completed Trimethoprim/Sulfamethoxazole (Bactrim Ds Tablet), 1 TAB ORAL TWICE A DAY Discontinued Reason: Therapy completed Patient History Healthcare decision maker Resuscitation status Full Code Advanced Directive on File No Past Medical/Surgical History Past Medical/Surgical History: (1) Acute bronchitis (2) Dyspnea (3) HIV (human immunodeficiency virus infection) (4) Hypertension Social History Social History: (1) Tobacco abuse Review of Systems All Other Systems: negative except mentioned in HPI Physical Exam General Appearance: WD/WN, no apparent distress, alert Lines, tubes and drains: peripheral HEENT: normocephalic, atraumatic, anicteric, mucous membranes moist, PERRL Neck: non-tender, normal alignment, supple, normal inspection, abnormal alignment Respiratory/Chest: chest wall non-tender, lungs clear, normal breath sounds, no respiratory distress, no accessory muscle use, respiratory distress Cardiovascular/Chest: normal peripheral pulses, normal rate, regular rhythm, regularly irregular, no gallop/murmur Abdomen: normal bowel sounds, non tender, soft, no organomegaly, no mass, abnormal bowel sounds Extremities: normal range of motion, non-tender, normal inspection, no calf tenderness, normal capillary refill Skin Exam: normal pigmentation, warm/dry 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, no motor/sensory deficits, alert, oriented x 3, responsive, normal mood/affect Musculoskeletal: normal muscle bulk Last 24 Hour Vital Signs Date Time Temp Pulse Resp B/P (MAP) Pulse Ox O2 Delivery O2 Flow Rate FiO2 09/28/18 11:55 98.0 61 20 151/90 (110) 95 09/28/18 09:11 Room Air 09/28/18 08:00 79 16 Room Air 21 09/28/18 08:00 97.9 63 18 154/96 (115) 96 09/28/18 08:00 65 09/28/18 06:19 Room Air 09/28/18 06:10 Room Air 09/28/18 05:20 97.9 84 18 153/108 94 Room Air 09/28/18 05:20 97.2 65 18 156/89 (111) 98 09/28/18 05:04 81 155/109 09/28/18 04:22 85 166/107 09/28/18 04:22 166/107 09/28/18 03:23 97.9 83 18 165/107 94 Room Air 09/28/18 03:23 85 18 Room Air 09/28/18 03:02 97.9 91 18 187/123 94 Room Air Intake and Output 09/27/18 09/28/18 19:00 07:00 Intake Total 0 ml Balance 0 ml Intake Oral 0 ml Laboratory Tests Test 09/28/18 03:40 09/28/18 04:11 09/28/18 04:34 09/28/18 09:00 White Blood Count 5.6 K/UL (4.8-10.8) 4.4 K/UL (4.8-10.8) L Red Blood Count 5.33 M/UL (4.70-6.10) 5.03 M/UL (4.70-6.10) Hemoglobin 15.8 G/DL (14.2-18.0) 14.8 G/DL (14.2-18.0) Hematocrit 45.1 % (42.0-52.0) 43.4 % (42.0-52.0) Mean Corpuscular Volume 85 FL (80-99) 86 FL (80-99) Mean Corpuscular Hemoglobin 29.7 PG (27.0-31.0) 29.4 PG (27.0-31.0) Mean Corpuscular Hemoglobin Concent 35.0 G/DL (32.0-36.0) 34.1 G/DL (32.0-36.0) Red Cell Distribution Width 12.5 % (11.6-14.8) 12.7 % (11.6-14.8) Platelet Count 245 K/UL (150-450) 235 K/UL (150-450) Mean Platelet Volume 7.7 FL (6.5-10.1) 7.3 FL (6.5-10.1) Neutrophils (%) (Auto) 43.4 % (45.0-75.0) L 44.3 % (45.0-75.0) L Lymphocytes (%) (Auto) 45.0 % (20.0-45.0) 43.9 % (20.0-45.0) Monocytes (%) (Auto) 8.5 % (1.0-10.0) 8.2 % (1.0-10.0) Eosinophils (%) (Auto) 1.7 % (0.0-3.0) 2.3 % (0.0-3.0) Basophils (%) (Auto) 1.4 % (0.0-2.0) 1.3 % (0.0-2.0) Sodium Level 139 MMOL/L (136-145) Potassium Level 3.4 MMOL/L (3.5-5.1) L Chloride Level 106 MMOL/L (98-107) Carbon Dioxide Level 27 MMOL/L (21-32) Anion Gap 6 mmol/L (5-15) Blood Urea Nitrogen 19 mg/dL (7-18) H Creatinine 1.8 MG/DL (0.55-1.30) H Estimat Glomerular Filtration Rate 48.1 mL/min (>60) Glucose Level 118 MG/DL (74-106) H Calcium Level 9.2 MG/DL (8.5-10.1) Total Bilirubin 0.4 MG/DL (0.2-1.0) Aspartate Amino Transf (AST/SGOT) 20 U/L (15-37) Alanine Aminotransferase (ALT/SGPT) 27 U/L (12-78) Alkaline Phosphatase 66 U/L (46-116) Total Creatine Kinase 407 U/L (26-308) H Troponin I 0.033 ng/mL (0.000-0.056) 0.020 ng/mL (0.000-0.056) C-Reactive Protein, Quantitative < 0.4 mg/dL (0.00-0.90) Pro-B-Type Natriuretic Peptide 125 pg/mL (0-125) Total Protein 7.6 G/DL (6.4-8.2) Albumin 3.8 G/DL (3.4-5.0) Globulin 3.8 g/dL Albumin/Globulin Ratio 1.0 (1.0-2.7) Prothrombin Time 11.1 SEC (9.30-11.50) Prothromb Time International Ratio 1.1 (0.9-1.1) Activated Partial Thromboplast Time 29 SEC (23-33) Urine Color Pale yellow Urine Appearance Clear Urine pH 5 (4.5-8.0) Urine Specific [place] 1.020 (1.005-1.035) Urine Protein Negative (NEGATIVE) Urine Glucose (UA) Negative (NEGATIVE) Urine Ketones Negative (NEGATIVE) Urine Blood Negative (NEGATIVE) Urine Nitrite Negative (NEGATIVE) Urine Bilirubin Negative (NEGATIVE) Urine Urobilinogen Normal MG/DL (0.0-1.0) Urine Leukocyte Esterase Negative (NEGATIVE) Urine Opiates Screen Negative (NEGATIVE) Urine Barbiturates Screen Negative (NEGATIVE) Phencyclidine (PCP) Screen Negative (NEGATIVE) Urine Amphetamines Screen Negative (NEGATIVE) Urine Benzodiazepines Screen Negative (NEGATIVE) Urine Cocaine Screen Negative (NEGATIVE) Urine Marijuana (THC) Screen Negative (NEGATIVE) Height (Feet): 6 Height (Inches): 1.00 Weight (Pounds): 230 Medications Current Medications Medications (Trade) Dose Ordered Sig/Paula Route PRN Reason Start Time Stop Time Status Last Admin Dose Admin Acetaminophen (Tylenol) 650 mg Q4H PRN ORAL Mild Pain (Pain Scale 1-3) 09/28/18 05:15 10/28/18 05:14 Albuterol/ Ipratropium (Albuterol/ Ipratropium) 3 ml NEEDED PRN HHN Shortness of Breath 09/28/18 05:15 10/03/18 05:14 Aspirin (ASA) 81 mg DAILY ORAL 09/28/18 11:30 10/28/18 11:29 Atorvastatin Calcium (Lipitor) 40 mg BEDTIME ORAL 09/28/18 21:00 10/28/18 20:59 Carvedilol (Coreg) 3.125 mg EVERY 12 HOURS ORAL 09/28/18 11:30 10/28/18 11:29 Ceftriaxone Sodium 1 gm/ Dextrose 50 ml @ 100 mls/hr Q24H IVPB 09/28/18 13:00 10/05/18 12:59 Darunavir (Prezista) 800 mg DAILY ORAL 09/28/18 11:45 10/28/18 11:44 UNV Dolutegravir Sodium (Tivicay) 50 mg DAILY ORAL 09/28/18 11:45 10/28/18 11:44 UNV Heparin Sodium (Porcine) (Heparin 5000 units/ml) 5,000 units EVERY 12 HOURS SUBQ 09/28/18 09:00 10/28/18 08:59 09/28/18 08:49 Nitroglycerin (Ntg) 0.4 mg Q5M PRN SL Prn Chest Pain 09/28/18 05:15 10/28/18 05:14 Ritonavir (Norvir) 100 mg DAILY ORAL 09/28/18 11:45 10/28/18 11:44 UNV Sodium Chloride 1,000 ml @ 100 mls/hr Q10H IV 11/10/18 08:45 10/28/18 08:44 09/28/18 08:47 Assessment/Plan Problem List: (1) Acute bronchitis ICD Codes: J20.9 - Acute bronchitis SNOMED: 58560052 Qualifiers: Qualified Codes: J20.9 - Acute bronchitis, unspecified (2) SOB (shortness of breath) ICD Codes: R06.02 - Shortness of breath SNOMED: 596279516 (3) Hypertension ICD Codes: I10 - Hypertension SNOMED: 32960671 Qualifiers: Qualified Codes: I15.9 - Secondary hypertension, unspecified (4) Tobacco abuse ICD Codes: Z72.0 - Tobacco use SNOMED: 858756666 (5) HIV (human immunodeficiency virus infection) ICD Codes: B20 - Human immunodeficiency virus [HIV] disease SNOMED: 16173039 Status: stable Assessment/Plan SOB 2/2 bronchitis? vs URI r/o ACS - ekgs reviewed and there are new t wave inversions - cardiology consult - ID consult - troponins and ekgs - medical management with asa, statin, bb - abx per ID HTN - medical management , pt asymptomatic HIV - cont home meds History of tobacco abuse - cessation education I have spent 70 minutes in regards to patient care and counseling. Meredith Herrera DO Sep 28, 2018 12:27
[2018-09-28] MEDS: Aspirin Baby 81mg ORAL SCH (12:39)
--- NOTE | 2018-09-28 13:09 | Cardiac Electrophysiology PN ---
Subjective Subjective [id number] Objective Last 24 Hour Vital Signs Date Time Temp Pulse Resp B/P (MAP) Pulse Ox O2 Delivery O2 Flow Rate FiO2 09/28/18 12:39 61 151/90 09/28/18 11:55 98.0 61 20 151/90 (110) 95 09/28/18 09:11 Room Air 09/28/18 08:00 79 16 Room Air 21 09/28/18 08:00 97.9 63 18 154/96 (115) 96 09/28/18 08:00 65 09/28/18 06:19 Room Air 09/28/18 06:10 Room Air 09/28/18 05:20 97.9 84 18 153/108 94 Room Air 09/28/18 05:20 97.2 65 18 156/89 (111) 98 09/28/18 05:04 81 155/109 09/28/18 04:22 85 166/107 09/28/18 04:22 166/107 09/28/18 03:23 97.9 83 18 165/107 94 Room Air 09/28/18 03:23 85 18 Room Air 09/28/18 03:02 97.9 91 18 187/123 94 Room Air Intake and Output 09/27/18 09/28/18 19:00 07:00 Intake Total 0 ml Balance 0 ml Intake Oral 0 ml Laboratory Tests Test 09/28/18 03:40 09/28/18 04:11 09/28/18 04:34 09/28/18 09:00 White Blood Count 5.6 K/UL (4.8-10.8) 4.4 K/UL (4.8-10.8) L Red Blood Count 5.33 M/UL (4.70-6.10) 5.03 M/UL (4.70-6.10) Hemoglobin 15.8 G/DL (14.2-18.0) 14.8 G/DL (14.2-18.0) Hematocrit 45.1 % (42.0-52.0) 43.4 % (42.0-52.0) Mean Corpuscular Volume 85 FL (80-99) 86 FL (80-99) Mean Corpuscular Hemoglobin 29.7 PG (27.0-31.0) 29.4 PG (27.0-31.0) Mean Corpuscular Hemoglobin Concent 35.0 G/DL (32.0-36.0) 34.1 G/DL (32.0-36.0) Red Cell Distribution Width 12.5 % (11.6-14.8) 12.7 % (11.6-14.8) Platelet Count 245 K/UL (150-450) 235 K/UL (150-450) Mean Platelet Volume 7.7 FL (6.5-10.1) 7.3 FL (6.5-10.1) Neutrophils (%) (Auto) 43.4 % (45.0-75.0) L 44.3 % (45.0-75.0) L Lymphocytes (%) (Auto) 45.0 % (20.0-45.0) 43.9 % (20.0-45.0) Monocytes (%) (Auto) 8.5 % (1.0-10.0) 8.2 % (1.0-10.0) Eosinophils (%) (Auto) 1.7 % (0.0-3.0) 2.3 % (0.0-3.0) Basophils (%) (Auto) 1.4 % (0.0-2.0) 1.3 % (0.0-2.0) Sodium Level 139 MMOL/L (136-145) Potassium Level 3.4 MMOL/L (3.5-5.1) L Chloride Level 106 MMOL/L (98-107) Carbon Dioxide Level 27 MMOL/L (21-32) Anion Gap 6 mmol/L (5-15) Blood Urea Nitrogen 19 mg/dL (7-18) H Creatinine 1.8 MG/DL (0.55-1.30) H Estimat Glomerular Filtration Rate 48.1 mL/min (>60) Glucose Level 118 MG/DL (74-106) H Calcium Level 9.2 MG/DL (8.5-10.1) Total Bilirubin 0.4 MG/DL (0.2-1.0) Aspartate Amino Transf (AST/SGOT) 20 U/L (15-37) Alanine Aminotransferase (ALT/SGPT) 27 U/L (12-78) Alkaline Phosphatase 66 U/L (46-116) Total Creatine Kinase 407 U/L (26-308) H Troponin I 0.033 ng/mL (0.000-0.056) 0.020 ng/mL (0.000-0.056) C-Reactive Protein, Quantitative < 0.4 mg/dL (0.00-0.90) Pro-B-Type Natriuretic Peptide 125 pg/mL (0-125) Total Protein 7.6 G/DL (6.4-8.2) Albumin 3.8 G/DL (3.4-5.0) Globulin 3.8 g/dL Albumin/Globulin Ratio 1.0 (1.0-2.7) Prothrombin Time 11.1 SEC (9.30-11.50) Prothromb Time International Ratio 1.1 (0.9-1.1) Activated Partial Thromboplast Time 29 SEC (23-33) Urine Color Pale yellow Urine Appearance Clear Urine pH 5 (4.5-8.0) Urine Specific [place] 1.020 (1.005-1.035) Urine Protein Negative (NEGATIVE) Urine Glucose (UA) Negative (NEGATIVE) Urine Ketones Negative (NEGATIVE) Urine Blood Negative (NEGATIVE) Urine Nitrite Negative (NEGATIVE) Urine Bilirubin Negative (NEGATIVE) Urine Urobilinogen Normal MG/DL (0.0-1.0) Urine Leukocyte Esterase Negative (NEGATIVE) Urine Opiates Screen Negative (NEGATIVE) Urine Barbiturates Screen Negative (NEGATIVE) Phencyclidine (PCP) Screen Negative (NEGATIVE) Urine Amphetamines Screen Negative (NEGATIVE) Urine Benzodiazepines Screen Negative (NEGATIVE) Urine Cocaine Screen Negative (NEGATIVE) Urine Marijuana (THC) Screen Negative (NEGATIVE) Test 09/28/18 12:00 White Blood Count Pending Lymphocytes Pending Lactate Dehydrogenase Pending Percent CD3 Cells Pending Absolute CD3 Count Pending Percent CD4 Cells Pending Absolute CD4 Count Pending T-Lymphocyte CD4/CD8 Ratio Pending Percent CD8 Cells Pending Absolute CD8 Count Pending HIV-1 RNA (PCR) log10 Value Pending HIV-1 RNA Ultraquantitative (PCR) Pending Srikanth Dimas MD Sep 28, 2018 13:09
[2018-09-28] MEDS ORDERED: Lexiscan 0.4mg/5ml syringe IV PRN (13:15)
[2018-09-28] MEDS: cefTRIAXone 1 GM in D5W 50 ML IVPB SCH (14:46)
[2018-09-28 16:09] VITALS: BP 151/102
--- NOTE | 2018-09-28 16:31 | Consultation ---
DATE OF CONSULTATION: 09/28/2018 CARDIOLOGY CONSULTATION CONSULTING PHYSICIAN: Srikanth Dimas M.D. REFERRING PHYSICIAN: Brandie Cleveland M.D. REASON FOR CONSULT: Chest pain and shortness of breath. HISTORY OF PRESENT ILLNESS: The patient is a 53-year-old gentleman with history of hypertension and HIV, who presented to the emergency room with shortness of breath, cough, and chest pain. The patient was at movies yesterday when he started coughing with productive sputum. The patient denies any prior myocardial infarction or known coronary artery disease. The patient reportedly had a cardiac catheterization many years ago, but did not require any intervention. The patient was admitted and Cardiology consultation was requested as the patient's EKG was quite abnormal. REVIEW OF SYSTEMS: Negative other than what was mentioned in the history of present illness. PAST MEDICAL HISTORY: As mentioned above. MEDICATIONS: Include Prezista, Colace, Truvada, Flonase, ritonavir. FAMILY HISTORY: Noncontributory. SOCIAL HISTORY: He is homosexual. He does not smoke or drink alcohol or use any drugs. PHYSICAL EXAMINATION: VITAL SIGNS: Show blood pressure of 151/90, pulse 64, respirations 18, and temperature 98. HEAD AND NECK: Showed no JVD or carotid bruit. LUNGS: Clear. CARDIOVASCULAR: Shows regular S1 and S2 with no gallop or murmur. ABDOMEN: Soft, nontender. EXTREMITIES: No pitting edema. LABORATORY AND DIAGNOSTIC DATA: Laboratories show white count of 4.4, hemoglobin 14.9, hematocrit 43.4, platelet of 235,000. Sodium 139, potassium 3.4, BUN of 19, creatinine 1.8, glucose of 118. Troponin negative x2. Urine toxicology screen is negative. ASSESSMENT AND PLAN: 1. Chest pain, abnormal electrocardiogram. The patient will be ruled out for myocardial infarction. He has inferolateral T-wave inversion suspicious for inferolateral ischemia. The patient states he has had cardiac catheterization was negative. We will proceed with nuclear stress test for further evaluation and management. 2. HIV, on anti-retroviral therapy. 3. Hypertension. Adjust his antihypertensive agents. Thank you very much for allowing me to participate in the care of this patient. Please do not hesitate to contact me for any questions regarding my evaluation. Srikanth Dimas M.D. DR: Shwetha JOB#: [id number] CC:
[2018-09-28 20:00] VITALS: BP 164/104
[2018-09-28] MEDS: Atorvastatin 20mg tab ORAL SCH (20:39)
[2018-09-28] MEDS: Carvedilol 12.5mg tab ORAL SCH (20:41)
[2018-09-29] VITALS: BP 148/100
[2018-09-29 04:00] VITALS: BP 157/87
[2018-09-29 08:06] VITALS: BP 147/98
[2018-09-29] MEDS: Carvedilol 12.5mg tab ORAL SCH ×2 (08:18→20:38)
[2018-09-29] MEDS: Aspirin Baby 81mg ORAL SCH (08:18)
[2018-09-29] MEDS: TIVICAY 50 MG ORAL SCH (08:18)
[2018-09-29] MEDS: SYMTUZA ORAL SCH (08:18)
[2018-09-29] MEDS: Heparin 5000 units/ml inj SUBQ SCH ×2 (08:22→20:42)
--- NOTE | 2018-09-29 09:42 | Diagnostic Imaging Report ---
INDICATION: Infection COMPARISON: 09/28/18 FINDINGS: Single frontal view demonstrates a normal cardiomediastinal silhouette. Stable shrapnel seen in left chest wall. Tortuous aorta. The lungs are clear. No pleural effusions. The visualized osseous structures are within normal limits. IMPRESSION: No significant change. Tortuous aorta. Stable shrapnel in left chest wall. Lungs are otherwise clear.
[2018-09-29 12:00] VITALS: BP 130/74
[2018-09-29 12:00] LABS: ANION GAP 12 mmol/L (5-15); BLOOD UREA NITROGEN 18 mg/dL (7-18); CARBON DIOXIDE 24 MMOL/L (21-32); CHLORIDE 106 MMOL/L (98-107); CREATININE 1.8 MG/DL (0.55-1.30); SODIUM 142 MMOL/L (136-145)
[2018-09-29] MEDS: cefTRIAXone 1 GM in D5W 50 ML IVPB SCH (12:30)
--- NOTE | 2018-09-29 12:46 | General Progress Note ---
Assessment/Plan Problem List: (1) Acute bronchitis ICD Codes: J20.9 - Acute bronchitis SNOMED: 51919402 Qualifiers: Qualified Codes: J20.9 - Acute bronchitis, unspecified (2) SOB (shortness of breath) ICD Codes: R06.02 - Shortness of breath SNOMED: 740548513 (3) Hypertension ICD Codes: I10 - Hypertension SNOMED: 53575935 Qualifiers: Qualified Codes: I15.9 - Secondary hypertension, unspecified (4) Tobacco abuse ICD Codes: Z72.0 - Tobacco use SNOMED: 890404123 (5) HIV (human immunodeficiency virus infection) ICD Codes: B20 - Human immunodeficiency virus [HIV] disease SNOMED: 08532670 Assessment/Plan SOB 2/2 bronchitis? vs URI r/o ACS - ekgs reviewed and there are new t wave inversions - appreciate cardiology consult by Dr. Dimas, plan for nuclear stress test - appreciate ID consult - troponins and ekgs - medical management with asa, statin, bb - abx per ID HTN - medical management , pt asymptomatic - started norvasc 5 daily CKD - initially presumed patient had EBONI however baseline Cr is 0.8, d/c IVF and cont to monitor - avoid nephrotoxic meds HIV - cont home meds History of tobacco abuse - cessation education I have spent 70 minutes in regards to patient care and counseling. Subjective Date patient seen: Sep 29, 2018 Time patient seen: 12:00 Allergies: Coded Allergies: No Known Allergies (Verified Allergy, Unknown, 11/27/07) All Systems: reviewed and negative except above Subjective admits to cough with phlegm. no chest pain, heart palpitations or sob. Objective Last 24 Hour Vital Signs Date Time Temp Pulse Resp B/P (MAP) Pulse Ox O2 Delivery O2 Flow Rate FiO2 09/29/18 12:37 83 130/74 09/29/18 12:00 99.0 81 19 130/74 (92) 95 09/29/18 09:13 Room Air 09/29/18 08:18 86 147/98 09/29/18 08:06 98.1 86 19 147/98 (114) 95 09/29/18 08:00 78 09/29/18 04:00 79 09/29/18 04:00 98.0 78 20 157/87 (110) 95 09/29/18 00:00 98.2 82 20 148/100 (116) 96 09/29/18 00:00 88 09/28/18 21:42 67 16 Room Air 21 09/28/18 21:00 Room Air 09/28/18 20:41 78 168/105 09/28/18 20:00 98.2 77 20 164/104 (124) 95 09/28/18 20:00 68 09/28/18 16:34 88 24 97 Room Air 21 09/28/18 16:09 97.9 68 20 151/102 (118) 97 09/28/18 16:00 63 Intake and Output 09/28/18 09/29/18 19:00 07:00 Intake Total 1260 ml 950 ml Output Total 600 ml Balance 660 ml 950 ml Intake Oral 260 ml IV Total 1000 ml 950 ml Output Urine Total 600 ml Laboratory Tests 09/29/18 06:18: Sodium Level 142, Potassium Level 4.0, Chloride Level 106, Carbon Dioxide Level 24, Anion Gap 12, Blood Urea Nitrogen 18, Creatinine 1.8H, Estimat Glomerular Filtration Rate 48.1, Glucose Level 92, Calcium Level 9.0, Troponin I 0.017 Height (Feet): 6 Height (Inches): 1.00 Weight (Pounds): 230 General Appearance: WD/WN, no apparent distress, alert EENT: PERRL/EOMI, normal ENT inspection Neck: non-tender, normal alignment, supple Cardiovascular: normal peripheral pulses, normal rate, regular rhythm, no JVD Respiratory/Chest: chest wall non-tender, lungs clear, normal breath sounds, no respiratory distress, no accessory muscle use, respiratory distress Abdomen: normal bowel sounds, non tender, soft, no organomegaly, no mass, abnormal bowel sounds Extremities: normal range of motion, non-tender 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
--- NOTE | 2018-09-29 13:52 | Cardiac Electrophysiology PN ---
Assessment/Plan Assessment/Plan 1. Chest pain, abnormal electrocardiogram. Ruled out for myocardial infarction. He has inferolateral T-wave inversion suspicious for inferolateral ischemia. We will proceed with nuclear stress test for further evaluation and management.Echo EF 55% 2. HIV, on anti-retroviral therapy. 3. Hypertension. Coreg 12.5 bid and increase Norvasc to 10 mg daily DW RN Subjective Subjective Doing well. No CP or SOB. RN at bedside. Objective Last 24 Hour Vital Signs Date Time Temp Pulse Resp B/P (MAP) Pulse Ox O2 Delivery O2 Flow Rate FiO2 09/29/18 12:37 83 130/74 09/29/18 12:00 78 09/29/18 12:00 99.0 81 19 130/74 (92) 95 09/29/18 09:13 Room Air 09/29/18 08:18 86 147/98 09/29/18 08:06 98.1 86 19 147/98 (114) 95 09/29/18 08:00 78 09/29/18 04:00 79 09/29/18 04:00 98.0 78 20 157/87 (110) 95 09/29/18 00:00 98.2 82 20 148/100 (116) 96 09/29/18 00:00 88 09/28/18 21:42 67 16 Room Air 21 09/28/18 21:00 Room Air 09/28/18 20:41 78 168/105 09/28/18 20:00 98.2 77 20 164/104 (124) 95 09/28/18 20:00 68 09/28/18 16:34 88 24 97 Room Air 21 09/28/18 16:09 97.9 68 20 151/102 (118) 97 09/28/18 16:00 63 Intake and Output 09/28/18 09/29/18 19:00 07:00 Intake Total 1260 ml 950 ml Output Total 600 ml Balance 660 ml 950 ml Intake Oral 260 ml IV Total 1000 ml 950 ml Output Urine Total 600 ml Laboratory Tests Test 09/29/18 06:18 Sodium Level 142 MMOL/L (136-145) Potassium Level 4.0 MMOL/L (3.5-5.1) Chloride Level 106 MMOL/L (98-107) Carbon Dioxide Level 24 MMOL/L (21-32) Anion Gap 12 mmol/L (5-15) Blood Urea Nitrogen 18 mg/dL (7-18) Creatinine 1.8 MG/DL (0.55-1.30) H Estimat Glomerular Filtration Rate 48.1 mL/min (>60) Glucose Level 92 MG/DL (74-106) Calcium Level 9.0 MG/DL (8.5-10.1) Troponin I 0.017 ng/mL (0.000-0.056) Objective HEAD AND NECK: Showed no JVD or carotid bruit. LUNGS: Clear. CARDIOVASCULAR: Shows regular S1 and S2 with no gallop or murmur. ABDOMEN: Soft, nontender. EXTREMITIES: No pitting edema. Srikanth Dimas MD Sep 29, 2018 13:52
[2018-09-29 16:00] VITALS: BP 151/106
--- NOTE | 2018-09-29 17:24 | Infectious Diseases Prog Note ---
Assessment/Plan Assessment/Plan Full consult dictated: A) 1) sob, cp, congestion, pharyngitis, uri/bronchitis, chest x-ray negative for pna 2) EKG changes, rule out mi 3) hiv, ? cd4, ? viral load P) 1) change to ceftin for 5 days, discontinue ceftriaxone 2) check cd4, viral load, labs 3) cardiology work-up 4) will f/u Subjective Constitutional: Denies: fever HEENT: Denies: congestion Respiratory: Denies: shortness of breath Cardiovascular: Denies: chest pain Gastrointestinal/Abdominal: Denies: nausea, vomiting Allergies: Coded Allergies: No Known Allergies (Verified Allergy, Unknown, 11/27/07) Objective Vital Signs Last 24 Hour Vital Signs Date Time Temp Pulse Resp B/P (MAP) Pulse Ox O2 Delivery O2 Flow Rate FiO2 09/29/18 16:00 98.9 71 20 151/106 (121) 100 09/29/18 12:37 83 130/74 09/29/18 12:00 78 09/29/18 12:00 99.0 81 19 130/74 (92) 95 09/29/18 09:30 83 18 Room Air 21 09/29/18 09:13 Room Air 09/29/18 08:18 86 147/98 09/29/18 08:06 98.1 86 19 147/98 (114) 95 09/29/18 08:00 78 09/29/18 04:00 79 09/29/18 04:00 98.0 78 20 157/87 (110) 95 09/29/18 00:00 98.2 82 20 148/100 (116) 96 09/29/18 00:00 88 09/28/18 21:42 67 16 Room Air 21 09/28/18 21:00 Room Air 09/28/18 20:41 78 168/105 09/28/18 20:00 98.2 77 20 164/104 (124) 95 09/28/18 20:00 68 Height (Feet): 6 Height (Inches): 1.00 Weight (Pounds): 230 General Appearance: no acute distress HEENT: normocephalic, atraumatic, anicteric, mucous membranes moist Respiratory/Chest: lungs clear, normal breath sounds, no respiratory distress, no accessory muscle use Cardiovascular: normal rate, regular rhythm, no gallop/murmur, no JVD Abdomen: no organomegaly Laboratory Tests Test 09/29/18 06:18 Sodium Level 142 MMOL/L (136-145) Potassium Level 4.0 MMOL/L (3.5-5.1) Chloride Level 106 MMOL/L (98-107) Carbon Dioxide Level 24 MMOL/L (21-32) Anion Gap 12 mmol/L (5-15) Blood Urea Nitrogen 18 mg/dL (7-18) Creatinine 1.8 MG/DL (0.55-1.30) H Estimat Glomerular Filtration Rate 48.1 mL/min (>60) Glucose Level 92 MG/DL (74-106) Calcium Level 9.0 MG/DL (8.5-10.1) Troponin I 0.017 ng/mL (0.000-0.056) Current Medications Medications (Trade) Dose Ordered Sig/Paula Route PRN Reason Start Time Stop Time Status Last Admin Dose Admin Acetaminophen (Tylenol) 650 mg Q4H PRN ORAL Mild Pain (Pain Scale 1-3) 09/28/18 05:15 10/28/18 05:14 Albuterol/ Ipratropium (Albuterol/ Ipratropium) 3 ml NEEDED PRN HHN Shortness of Breath 09/28/18 05:15 10/03/18 05:14 09/28/18 16:33 Amlodipine Besylate (Norvasc) 10 mg DAILY ORAL 09/30/18 09:00 10/29/18 12:29 Aspirin (ASA) 81 mg DAILY ORAL 09/28/18 11:30 10/28/18 11:29 09/29/18 08:18 Atorvastatin Calcium (Lipitor) 40 mg BEDTIME ORAL 09/28/18 21:00 10/28/18 20:59 09/28/18 20:39 Carvedilol (Coreg) 12.5 mg EVERY 12 HOURS ORAL 09/28/18 21:00 10/28/18 20:59 09/29/18 08:18 Clonidine HCl (Catapres Tab) 0.1 mg EVERY 2 HOURS PRN ORAL sbp>170 09/28/18 13:15 10/28/18 13:14 Heparin Sodium (Porcine) (Heparin 5000 units/ml) 5,000 units EVERY 12 HOURS SUBQ 09/28/18 09:00 10/28/18 08:59 09/29/18 08:22 Nitroglycerin (Ntg) 0.4 mg Q5M PRN SL Prn Chest Pain 09/28/18 05:15 10/28/18 05:14 Patient Own Medication (Patient's Own Med) 1 ea DAILY ORAL 09/29/18 09:00 10/29/18 08:59 09/29/18 08:18 Patient Own Medication (Patient's Own Med) 1 ea DAILY ORAL 09/29/18 09:00 10/29/18 08:59 09/29/18 08:18 Regadenoson (Lexiscan) 0.4 mg ONCE PRN IV stress test 09/28/18 13:15 09/30/18 23:59 Digna Naidu MD Sep 29, 2018 17:24
[2018-09-29] MEDS ORDERED: Amoxicillin 250mg/5ml susp 150ml GT SCH (18:00)
[2018-09-29 20:00] VITALS: BP 150/95
[2018-09-29] MEDS: Atorvastatin 20mg tab ORAL SCH (20:38)
[2018-09-30] VITALS: BP 126/85
--- NOTE | 2018-09-30 02:16 | Consultation ---
DATE OF CONSULTATION: 09/29/2018 INFECTIOUS DISEASE CONSULTATION CONSULTING PHYSICIAN: Digna Naidu M.D. ATTENDING PHYSICIAN: Brandie Cleveland M.D. REFERRING PHYSICIAN: Brandie Cleveland M.D. REASON FOR CONSULTATION: The patient has pharyngitis; also history of HIV; also possible community-acquired pneumonia, rule out pneumonia; and shortness of breath. CHIEF COMPLAINT: The patient's chief complaint coming in to the hospital is difficulty breathing. HISTORY OF PRESENT ILLNESS: This is a very pleasant 53-year-old male with history of HIV, unclear T-cell count, and viral load. The patient is being followed by Dr. Lozano in the outpatient setting. The patient came in to [facility] with shortness of breath. Chest x-ray initially was negative. Followup chest x-ray has been ordered. The patient has significant history of severe pharyngitis. Infectious Disease consultation was requested for antibiotic management. I saw the patient yesterday on 09/28/2018 and put the patient on Rocephin 1 g IV q.24 hours to cover pharyngitis and also possibly community-acquired pneumonia. I have also ordered CD4 and viral load. The patient also had EKG changes and will undergo stress test. He also had chest pain. The patient was seen by Cardiology and on EKG had T-wave inversion. The patient's chest x-ray followup was negative and we will discontinue Rocephin and place the patient on amoxicillin for pharyngitis at this time. MAR was noted. Orders were noted. Notes were reviewed. REVIEW OF SYSTEMS: CONSTITUTIONAL: The patient has generalized fatigue, but no focal weakness. Occasional fever and chills. No night sweats, fever, chills, or weight loss. HEAD AND NECK: He had pharyngitis. No change in vision or neck stiffness. CARDIAC: He came in with chest pain. GASTROINTESTINAL: No nausea, vomiting, or diarrhea. No abdominal pain. PULMONARY: Mild cough and congestion, but no hemoptysis or secretions. SKIN: No rash or itching. EXTREMITIES: No extremity pain. NEUROLOGIC: No seizures. GENITOURINARY: No dysuria or frequency. No CVA tenderness. PAST MEDICAL HISTORY: The patient's past medical history includes the history of following. He has history of HIV, unclear T-cell viral load. He is on anti-retroviral therapy. He is being followed by Dr. Lozano as outpatient for his HIV. Other past medical history includes history of hypertension and HIV. No history of diabetes mentioned. He has a history of nicotine dependency in the past. Also, he has chronic kidney disease. ALLERGIES: No known drug allergies. No antibiotic allergies. SOCIAL HISTORY: Positive smoker in the past. No alcohol or drug abuse. FAMILY HISTORY: Noncontributory. Negative for diabetes or cancer. MEDICATIONS: Upon reviewing the MAR, he is on the following medications. He is on amlodipine and Norvasc. He is on Lipitor. He is on Coreg. He is on clonidine, aspirin, and heparin. He is on albuterol, nitroglycerin, and acetaminophen. Outside medications noted and reconciled. He is on HIV medications. He was on darunavir, which is Prezista. He is on docusate. He is on Tivicay or dolutegravir. He is on Truvada or emtricitabine and tenofovir. He is on entecavir. He is on ritonavir. He is on Ritonavir. He is on . He is getting his own medications for HIV. PHYSICAL EXAMINATION: VITAL SIGNS: Blood pressure 151/106, saturating 100%, respiratory rate 20, pulse rate 71, and temperature 98.9 degrees. GENERAL: Alert and responsive, no distress. HEAD AND NECK: Oral exam, some pharyngitis noted. Neck is supple. No JVD. HEART: Regular. No gallop or murmur. No friction rub. ABDOMEN: Soft and nontender. LUNGS: Few bilateral rhonchi. No definite rales. Rhonchi decreased today versus yesterday. PERIPHERAL VASCULAR: No cyanosis or gangrene. MUSCULOSKELETAL: No evidence of septic arthritis. NEUROLOGICAL: Intact. LINE SITES: Without phlebitis. GENITOURINARY: No Mcbride. No CVA tenderness. LABORATORY AND DIAGNOSTIC DATA: Laboratory data as follows: White count 4.4, hemoglobin 14.8, and creatinine 1.8. On admission, creatinine was 1.8 also. Glucose 118. CK 407. EKG changes were noted per the records. UA was negative. HIV and viral load are pending. IMAGING STUDIES: Chest x-ray shows no acute disease. Lungs are clear, noted and reviewed. ASSESSMENT AND PLAN: 1. The patient has pharyngitis, grew out Streptococcus pharyngitis. Throat culture I believe was ordered, I do not see any results. The patient was on Rocephin for possible strep pharyngitis, upper respiratory tract infection, possible community-acquired pneumonia. Chest x-ray is negative. At this time, for possible upper respiratory infection, bronchitis, and also pharyngitis, I will consider switching to oral antibiotics. I have placed the patient on Ceftin 500 mg p.o. b.i.d. Pharmacy will adjust for renal insufficiency as needed. He is younger, however, his creatinine is 1.8. Continue Ceftin x5 more days. This will be sufficient treatment for the pharyngitis and the upper respiratory infection and bronchitis. Discontinue Rocephin. Followup chest x-ray has been negative for community-acquired pneumonia. 2. Human immunodeficiency virus. Check CD4 and viral load. Continue anti-retroviral therapy. 3. EKG changes, workup per Cardiology, stress test versus catheterization,. 4. Elevated creatinine, chronic kidney disease, question acute kidney injury. 5. Hypertension. Blood pressure treatment per primary. 6. Question of hyperlipidemia. The patient on lipid treatment. 7. Shortness of breath, improved. 8. . 9. No known allergies. 10. Social history, prior smoker. 11. Family history is noncontributory. 12. MAR was noted. 13. Case was discussed with RN. 14. Case discussed with Dr. Herrera. 15. Continue treatment per primary consultants. Digna Naidu M.D. DR: RAYRAY JOB#: [id number] CC:
[2018-09-30 04:00] VITALS: BP 138/90
[2018-09-30 08:00] VITALS: BP 149/109
[2018-09-30] MEDS: Heparin 5000 units/ml inj SUBQ SCH ×2 (08:47→20:40)
[2018-09-30] MEDS: Aspirin Baby 81mg ORAL SCH (08:48)
[2018-09-30] MEDS: Carvedilol 12.5mg tab ORAL SCH (08:48)
[2018-09-30] MEDS: TIVICAY 50 MG ORAL SCH (08:49)
[2018-09-30] MEDS: SYMTUZA ORAL SCH (08:49)
[2018-09-30] MEDS ORDERED: Carvedilol 12.5mg tab ORAL SCH (09:30)
[2018-09-30 09:46] LABS: BASOPHILS % (AUTO) 1.4 % (0.0-2.0); EOSINOPHILS % (AUTO) 3.6 % (0.0-3.0); HEMATOCRIT 45.5 % (42.0-52.0); HEMOGLOBIN 15.5 G/DL (14.2-18.0); LYMPHOCYTES % (AUTO) 35.3 % (20.0-45.0); MEAN CORPUSCULAR VOLUME 86 FL (80-99); MONOCYTES % (AUTO) 8.9 % (1.0-10.0); NEUTROPHILS % (AUTO) 50.8 % (45.0-75.0); PLATELET COUNT 243 K/UL (150-450); RED BLOOD COUNT 5.27 M/UL (4.70-6.10); RED CELL DISTRIBUTION WIDTH 12.7 % (11.6-14.8); WHITE BLOOD COUNT 5.6 K/UL (4.8-10.8)
[2018-09-30 10:07] LABS: ANION GAP 10 mmol/L (5-15); BLOOD UREA NITROGEN 16 mg/dL (7-18); CALCIUM 9.4 MG/DL (8.5-10.1); CARBON DIOXIDE 26 MMOL/L (21-32); CHLORIDE 105 MMOL/L (98-107); CREATININE 1.8 MG/DL (0.55-1.30); PHOSPHORUS 3.4 MG/DL (2.5-4.9); POTASSIUM 4.2 MMOL/L (3.5-5.1); SODIUM 141 MMOL/L (136-145)
--- NOTE | 2018-09-30 10:19 | General Progress Note ---
Assessment/Plan Problem List: (1) Acute bronchitis ICD Codes: J20.9 - Acute bronchitis SNOMED: 78764417 Qualifiers: Qualified Codes: J20.9 - Acute bronchitis, unspecified (2) SOB (shortness of breath) ICD Codes: R06.02 - Shortness of breath SNOMED: 156220508 (3) Hypertension ICD Codes: I10 - Hypertension SNOMED: 32253226 Qualifiers: Qualified Codes: I15.9 - Secondary hypertension, unspecified (4) Tobacco abuse ICD Codes: Z72.0 - Tobacco use SNOMED: 420497541 (5) HIV (human immunodeficiency virus infection) ICD Codes: B20 - Human immunodeficiency virus [HIV] disease SNOMED: 89373999 Assessment/Plan SOB 2/2 bronchitis? vs URI r/o ACS - ekgs reviewed and there are new t wave inversions - appreciate cardiology consult by Dr. Dimas, plan for nuclear stress test - appreciate ID consult - troponins and ekgs - medical management with asa, statin, bb - abx per ID , on dc plan for ceftin 500 mg PO BId x 5 days HTN - medical management , pt asymptomatic - increase dose of norvasc to 10 mg daily and oreg to 25 mg BID, cont to monitor CKD - baseline cr 1.8 - avoid nephrotoxic meds HIV - cont home meds History of tobacco abuse - cessation education I have spent 70 minutes in regards to patient care and counseling. Subjective Date patient seen: Sep 30, 2018 Time patient seen: 09:00 ROS Limited/Unobtainable: No Allergies: Coded Allergies: No Known Allergies (Verified Allergy, Unknown, 11/27/07) Subjective admits to cough with phlegm. no chest pain, heart palpitations or sob. He has completed part one of stress test and awaiting part two. Objective Last 24 Hour Vital Signs Date Time Temp Pulse Resp B/P (MAP) Pulse Ox O2 Delivery O2 Flow Rate FiO2 09/30/18 09:53 70 149/109 09/30/18 09:00 Room Air 09/30/18 08:48 70 149/109 09/30/18 08:48 70 149/109 09/30/18 08:00 98.2 70 20 149/109 (122) 97 09/30/18 07:44 97 16 Room Air 21 09/30/18 04:00 98.4 70 17 138/90 (106) 98 09/30/18 04:00 71 09/30/18 00:00 72 09/30/18 00:00 98.1 75 17 126/85 (99) 98 09/29/18 21:00 Room Air 09/29/18 20:38 88 155/104 09/29/18 20:33 97 18 Room Air 21 09/29/18 20:00 82 09/29/18 20:00 98.1 90 18 150/95 (113) 100 09/29/18 16:00 73 09/29/18 16:00 98.9 71 20 151/106 (121) 100 09/29/18 12:37 83 130/74 09/29/18 12:00 78 09/29/18 12:00 99.0 81 19 130/74 (92) 95 Intake and Output 09/29/18 09/30/18 18:59 06:59 Intake Total 500 ml Balance 500 ml IV Total 500 ml Laboratory Tests 09/30/18 09:35: White Blood Count 5.6, Red Blood Count 5.27, Hemoglobin 15.5, Hematocrit 45.5, Mean Corpuscular Volume 86, Mean Corpuscular Hemoglobin 29.3, Mean Corpuscular Hemoglobin Concent 34.0, Red Cell Distribution Width 12.7, Platelet Count 243, Mean Platelet Volume 7.5, Neutrophils (%) (Auto) 50.8, Lymphocytes (%) (Auto) 35.3, Monocytes (%) (Auto) 8.9, Eosinophils (%) (Auto) 3.6H, Basophils (%) (Auto ) 1.4, Sodium Level 141, Potassium Level 4.2, Chloride Level 105, Carbon Dioxide Level 26, Anion Gap 10, Blood Urea Nitrogen 16, Creatinine 1.8H, Estimat Glomerular Filtration Rate 48.1, Glucose Level 98, Calcium Level 9.4, Phosphorus Level 3.4, Magnesium Level 2.1, Troponin I 0.011 Height (Feet): 6 Height (Inches): 1.00 Weight (Pounds): 230 General Appearance: WD/WN, no apparent distress, alert EENT: PERRL/EOMI, normal ENT inspection, pharynx normal Neck: non-tender, normal alignment, supple, normal inspection Cardiovascular: normal peripheral pulses, normal rate, regular rhythm, no gallop/murmur Respiratory/Chest: chest wall non-tender, lungs clear, normal breath sounds, no respiratory distress, no accessory muscle use, respiratory distress Abdomen: normal bowel sounds, non tender, soft, no organomegaly, no mass, abnormal bowel sounds Extremities: normal range of motion, non-tender Edema: no edema noted Arm (L), no edema noted Arm (R), no edema noted Leg (L), no edema noted Leg (R), no edema noted Pedal (L), no edema noted Pedal (R), no edema noted Generalized 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
[2018-09-30] MEDS ORDERED: LIPITOR20 MG ORAL (10:24)
[2018-09-30] MEDS ORDERED: CEFUROXIME250 MG ORAL (10:24)
[2018-09-30] MEDS ORDERED: COREG25 MG ORAL (10:24)
[2018-09-30] MEDS ORDERED: NORVASC5 MG ORAL (10:24)
[2018-09-30] MEDS ORDERED: ASPIRIN81 MG ORAL (10:24)
--- NOTE | 2018-09-30 10:33 | Cardiology Report ---
APPROVED REPORT EXAM: Two-dimensional and M-mode echocardiogram with Doppler and color Doppler. INDICATION S.O.B M-Mode DIMENSIONS IVSd1.1 (0.7-1.1cm)Left Atrium (MM)3.3 (1.6-4.0cm) LVDd5.5 (3.5-5.6cm)Aortic Root4.1 (2.0-3.7cm) PWd1.6 (0.7-1.1cm)Aortic Cusp Exc.2.6 (1.5-2.0cm) IVSs1.6 cm LVDs3.7 (2.5-4.0cm) PWs1.7 cm Normal left ventricular chamber size, systolic function and wall motion . Left ventricular ejection fraction estimated to be 55 %. Mild left ventricular hypertrophy. No evidence of pericardial effusion. All other cardiac chamber sizes are within normal limits. Focal aortic valve sclerosis with adequate cusp excursion. Thickened mitral valve leaflets with normal excursion. Mitral annulus and aortic root calcification. Pulmonic valve not well visualized. Normal tricuspid valve structure. IVC at normal size with physiologic collapse.. A color flow and spectral Doppler study was performed and revealed: Mild aortic regurgitation. Mild mitral regurgitation. Mitral diastolic velocities suggest reduced left ventricular relaxation c/w mild LV diastolic dysfunction (Grade I ). Mild tricuspid regurgitation. Tricuspid systolic velocities suggests peak right ventricular systolic pressure of 33 mmHg Trace Pulmonic regurgitation present.
[2018-09-30 12:00] VITALS: BP 143/101
--- NOTE | 2018-09-30 13:07 | Cardiac Electrophysiology PN ---
Assessment/Plan Assessment/Plan 1. Chest pain, abnormal electrocardiogram. Ruled out for myocardial infarction. He has inferolateral T-wave inversion suspicious for inferolateral ischemia. Nuclear stress test today is pending.Echo EF 55% 2. HIV, on anti-retroviral therapy. 3. Hypertension. Coreg 12.5 bid and Norvasc 10 mg daily DW RN and Dr Herrera Subjective Subjective No CP or SOB. Awaiting stress test today. RN at bedside. Objective Last 24 Hour Vital Signs Date Time Temp Pulse Resp B/P (MAP) Pulse Ox O2 Delivery O2 Flow Rate FiO2 09/30/18 09:53 70 149/109 09/30/18 09:00 Room Air 09/30/18 08:48 70 149/109 09/30/18 08:48 70 149/109 09/30/18 08:00 98.2 70 20 149/109 (122) 97 09/30/18 08:00 79 09/30/18 07:44 97 16 Room Air 21 09/30/18 04:00 98.4 70 17 138/90 (106) 98 09/30/18 04:00 71 09/30/18 00:00 72 09/30/18 00:00 98.1 75 17 126/85 (99) 98 09/29/18 21:00 Room Air 09/29/18 20:38 88 155/104 09/29/18 20:33 97 18 Room Air 21 09/29/18 20:00 82 09/29/18 20:00 98.1 90 18 150/95 (113) 100 09/29/18 16:00 73 09/29/18 16:00 98.9 71 20 151/106 (121) 100 Intake and Output 09/29/18 09/30/18 18:59 06:59 Intake Total 500 ml Balance 500 ml IV Total 500 ml Laboratory Tests Test 09/30/18 09:35 White Blood Count 5.6 K/UL (4.8-10.8) Red Blood Count 5.27 M/UL (4.70-6.10) Hemoglobin 15.5 G/DL (14.2-18.0) Hematocrit 45.5 % (42.0-52.0) Mean Corpuscular Volume 86 FL (80-99) Mean Corpuscular Hemoglobin 29.3 PG (27.0-31.0) Mean Corpuscular Hemoglobin Concent 34.0 G/DL (32.0-36.0) Red Cell Distribution Width 12.7 % (11.6-14.8) Platelet Count 243 K/UL (150-450) Mean Platelet Volume 7.5 FL (6.5-10.1) Neutrophils (%) (Auto) 50.8 % (45.0-75.0) Lymphocytes (%) (Auto) 35.3 % (20.0-45.0) Monocytes (%) (Auto) 8.9 % (1.0-10.0) Eosinophils (%) (Auto) 3.6 % (0.0-3.0) H Basophils (%) (Auto) 1.4 % (0.0-2.0) Sodium Level 141 MMOL/L (136-145) Potassium Level 4.2 MMOL/L (3.5-5.1) Chloride Level 105 MMOL/L (98-107) Carbon Dioxide Level 26 MMOL/L (21-32) Anion Gap 10 mmol/L (5-15) Blood Urea Nitrogen 16 mg/dL (7-18) Creatinine 1.8 MG/DL (0.55-1.30) H Estimat Glomerular Filtration Rate 48.1 mL/min (>60) Glucose Level 98 MG/DL (74-106) Calcium Level 9.4 MG/DL (8.5-10.1) Phosphorus Level 3.4 MG/DL (2.5-4.9) Magnesium Level 2.1 MG/DL (1.8-2.4) Troponin I 0.011 ng/mL (0.000-0.056) Microbiology Date/Time Source Procedure Growth Status 09/28/18 05:29 Nasal Nares MRSA Culture - Final NO METHICILLIN RESISTANT STAPH AUREUS... Complete 09/28/18 05:29 Rectum VRE Culture - Final NO VANCOMYCIN RESISTANT ENTEROCOCCUS ... Complete Objective HEAD AND NECK: No JVD or carotid bruit. LUNGS: Clear. CARDIOVASCULAR: Regular S1 and S2 with no gallop or murmur. ABDOMEN: Soft, nontender. EXTREMITIES: No pitting edema. Srikanth Dimas MD Sep 30, 2018 13:07
--- NOTE | 2018-09-30 13:52 | Infectious Diseases Prog Note ---
Assessment/Plan Assessment/Plan ASSESSMENT AND PLAN: 1. pharyngitis, uri, bronchitis, chest x-ray negative for pna - ceftin po x 5 days - improved 2. Human immunodeficiency virus. Check CD4 - 330 and viral load pending. - continue anti-retroviral therapy as is - f/u with primary HIV MD - Dr. Lozano 3. EKG changes, workup per Cardiology, stress test versus catheterization - stress test done 4. Elevated creatinine, chronic kidney disease, question acute kidney injury. 5. Hypertension. Blood pressure treatment per primary. 6. Question of hyperlipidemia. The patient on lipid treatment. 7. Shortness of breath - improved. 8. f/u on stress camelia 9. No known allergies. 10. Social history, prior smoker. 11. Family history is noncontributory. 12. MAR was noted. 13. Case was discussed with RN. 14. Case discussed with Dr. Herrera. 15. Continue treatment per primary consultants. Subjective Constitutional: Denies: fever HEENT: Denies: congestion Respiratory: Denies: shortness of breath Cardiovascular: Denies: chest pain Gastrointestinal/Abdominal: Denies: nausea, vomiting, diarrhea Genitourinary: Denies: dysuria Neurologic: Denies: headache Psychiatric: Denies: depression Skin: Denies: rash Hematologic: Denies: bleeding Musculoskeletal: Denies: pain Allergies: Coded Allergies: No Known Allergies (Verified Allergy, Unknown, 11/27/07) Objective Vital Signs Last 24 Hour Vital Signs Date Time Temp Pulse Resp B/P (MAP) Pulse Ox O2 Delivery O2 Flow Rate FiO2 09/30/18 12:00 97.8 87 20 143/101 (115) 98 09/30/18 09:53 70 149/109 09/30/18 09:00 Room Air 09/30/18 08:48 70 149/109 09/30/18 08:48 70 149/109 09/30/18 08:00 98.2 70 20 149/109 (122) 97 09/30/18 08:00 79 09/30/18 07:44 97 16 Room Air 21 09/30/18 04:00 98.4 70 17 138/90 (106) 98 09/30/18 04:00 71 09/30/18 00:00 72 09/30/18 00:00 98.1 75 17 126/85 (99) 98 09/29/18 21:00 Room Air 09/29/18 20:38 88 155/104 09/29/18 20:33 97 18 Room Air 21 09/29/18 20:00 82 09/29/18 20:00 98.1 90 18 150/95 (113) 100 09/29/18 16:00 73 09/29/18 16:00 98.9 71 20 151/106 (121) 100 Height (Feet): 6 Height (Inches): 1.00 Weight (Pounds): 230 General Appearance: no acute distress HEENT: normocephalic, atraumatic, anicteric, mucous membranes moist Respiratory/Chest: lungs clear, normal breath sounds, no accessory muscle use, respiratory distress Cardiovascular: normal rate, regular rhythm, no gallop/murmur, no JVD Abdomen: normal bowel sounds, soft, non tender, no organomegaly, non distended Genitourinary: other - no hollis Extremities: no cyanosis Skin: no rash 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 Stable shrapnel seen in left chest wall. Tortuous aorta. The lungs are clear. No pleural effusions. The visualized osseous structures are within normal limits. IMPRESSION: No significant change. Tortuous aorta. Stable shrapnel in left chest wall. Lungs are otherwise clear. Microbiology Date/Time Source Procedure Growth Status 09/28/18 05:29 Nasal Nares MRSA Culture - Final NO METHICILLIN RESISTANT STAPH AUREUS... Complete 09/28/18 05:29 Rectum VRE Culture - Final NO VANCOMYCIN RESISTANT ENTEROCOCCUS ... Complete Microbiology Date/Time Source Procedure Growth Status 09/28/18 05:29 Nasal Nares MRSA Culture - Final NO METHICILLIN RESISTANT STAPH AUREUS... Complete 09/28/18 05:29 Rectum VRE Culture - Final NO VANCOMYCIN RESISTANT ENTEROCOCCUS ... Complete Laboratory Tests Test 09/30/18 09:35 White Blood Count 5.6 K/UL (4.8-10.8) Red Blood Count 5.27 M/UL (4.70-6.10) Hemoglobin 15.5 G/DL (14.2-18.0) Hematocrit 45.5 % (42.0-52.0) Mean Corpuscular Volume 86 FL (80-99) Mean Corpuscular Hemoglobin 29.3 PG (27.0-31.0) Mean Corpuscular Hemoglobin Concent 34.0 G/DL (32.0-36.0) Red Cell Distribution Width 12.7 % (11.6-14.8) Platelet Count 243 K/UL (150-450) Mean Platelet Volume 7.5 FL (6.5-10.1) Neutrophils (%) (Auto) 50.8 % (45.0-75.0) Lymphocytes (%) (Auto) 35.3 % (20.0-45.0) Monocytes (%) (Auto) 8.9 % (1.0-10.0) Eosinophils (%) (Auto) 3.6 % (0.0-3.0) H Basophils (%) (Auto) 1.4 % (0.0-2.0) Sodium Level 141 MMOL/L (136-145) Potassium Level 4.2 MMOL/L (3.5-5.1) Chloride Level 105 MMOL/L (98-107) Carbon Dioxide Level 26 MMOL/L (21-32) Anion Gap 10 mmol/L (5-15) Blood Urea Nitrogen 16 mg/dL (7-18) Creatinine 1.8 MG/DL (0.55-1.30) H Estimat Glomerular Filtration Rate 48.1 mL/min (>60) Glucose Level 98 MG/DL (74-106) Calcium Level 9.4 MG/DL (8.5-10.1) Phosphorus Level 3.4 MG/DL (2.5-4.9) Magnesium Level 2.1 MG/DL (1.8-2.4) Troponin I 0.011 ng/mL (0.000-0.056) Current Medications Medications (Trade) Dose Ordered Sig/Paula Route PRN Reason Start Time Stop Time Status Last Admin Dose Admin Acetaminophen (Tylenol) 650 mg Q4H PRN ORAL Mild Pain (Pain Scale 1-3) 09/28/18 05:15 10/28/18 05:14 Albuterol/ Ipratropium (Albuterol/ Ipratropium) 3 ml NEEDED PRN HHN Shortness of Breath 09/28/18 05:15 10/03/18 05:14 09/28/18 16:33 Amlodipine Besylate (Norvasc) 10 mg DAILY ORAL 09/30/18 09:00 10/29/18 12:29 09/30/18 08:48 Aspirin (ASA) 81 mg DAILY ORAL 09/28/18 11:30 10/28/18 11:29 09/30/18 08:48 Atorvastatin Calcium (Lipitor) 40 mg BEDTIME ORAL 09/28/18 21:00 10/28/18 20:59 09/29/18 20:38 Carvedilol (Coreg) 25 mg EVERY 12 HOURS ORAL 09/30/18 21:00 10/30/18 20:59 Cefuroxime Axetil (Ceftin) 500 mg EVERY 12 HOURS ORAL 09/29/18 21:00 10/06/18 20:59 09/30/18 08:48 Clonidine HCl (Catapres Tab) 0.1 mg EVERY 2 HOURS PRN ORAL sbp>170 09/28/18 13:15 10/28/18 13:14 Heparin Sodium (Porcine) (Heparin 5000 units/ml) 5,000 units EVERY 12 HOURS SUBQ 09/28/18 09:00 10/28/18 08:59 09/30/18 08:47 Nitroglycerin (Ntg) 0.4 mg Q5M PRN SL Prn Chest Pain 09/28/18 05:15 10/28/18 05:14 Patient Own Medication (Patient's Own Med) 1 ea DAILY ORAL 09/29/18 09:00 10/29/18 08:59 09/30/18 08:49 Patient Own Medication (Patient's Own Med) 1 ea DAILY ORAL 09/29/18 09:00 10/29/18 08:59 09/30/18 08:49 Regadenoson (Lexiscan) 0.4 mg ONCE PRN IV stress test 09/28/18 13:15 09/30/18 23:59 Digna Naidu MD Sep 30, 2018 13:52
--- NOTE | 2018-09-30 15:42 | Diagnostic Imaging Report ---
Indications: Chest pain and hypertension Technique: Single day single isotope protocol utilized. Initially, resting images obtained using IV administration 9.9 millicuries 99M technetium Myoview. Subsequently, patient underwent lexiscan stress testing. See cardiology report for details. During Lexiscan infusion, IV administration 30.5 mCi 99 M technetium Myoview. SPECT and planar images obtained. SPECT images gated to 8 phases of the cardiac cycle were also obtained, and reformatted into cine images for evaluation of ejection fraction. Comparison: none Findings: Presence or absence of symptoms during infusion is not described on the cardiology report. Per cardiology report, resting EKG demonstrates normal sinus rhythm. Presence or absence of ST changes during infusion is not described. Imaging demonstrates decreased perfusion in the inferolateral wall near the base on the post stress images which is not evident on the resting images there is also a questionable fixed area of decreased perfusion in the anteroseptal wall near the apex. There is mild left ventricular dilatation. Calculated post stress ejection fraction 50%. No focal wall motion abnormality Impression: Nonischemic clinical response to pharmacologic stress, per cardiology report Nonischemic electrocardiographic response to pharmacologic stress, per cardiology report Reversible perfusion defect suggestive of ischemia in the inferolateral wall near the base. Very questionable small area of fixed perfusion defect suggestive of infarct in the anteroseptal wall near the apex Calculated post stress ejection fraction 50%
[2018-09-30 16:00] VITALS: BP 151/80
[2018-09-30 20:00] VITALS: BP 142/98
[2018-09-30] MEDS: Atorvastatin 20mg tab ORAL SCH (20:42)
[2018-09-30] MEDS: Carvedilol 25mg Tab ORAL SCH (20:42)
[2018-10-01] VITALS: BP 137/95
[2018-10-01 04:00] VITALS: BP 136/95
[2018-10-01 08:46] VITALS: BP 134/96
[2018-10-01] MEDS: Carvedilol 25mg Tab ORAL SCH (10:03)
[2018-10-01] MEDS: Aspirin Baby 81mg ORAL SCH (10:03)
[2018-10-01] MEDS: SYMTUZA ORAL SCH (10:04)
[2018-10-01] MEDS: TIVICAY 50 MG ORAL SCH (10:04)
[2018-10-01] MEDS: Heparin 5000 units/ml inj SUBQ SCH (10:10)
--- NOTE | 2018-10-01 10:35 | General Progress Note ---
Assessment/Plan Problem List: (1) Acute bronchitis ICD Codes: J20.9 - Acute bronchitis SNOMED: 90769584 Qualifiers: Qualified Codes: J20.9 - Acute bronchitis, unspecified (2) SOB (shortness of breath) ICD Codes: R06.02 - Shortness of breath SNOMED: 978091104 (3) Hypertension ICD Codes: I10 - Hypertension SNOMED: 06764923 Qualifiers: Qualified Codes: I15.9 - Secondary hypertension, unspecified (4) Tobacco abuse ICD Codes: Z72.0 - Tobacco use SNOMED: 354214840 (5) HIV (human immunodeficiency virus infection) ICD Codes: B20 - Human immunodeficiency virus [HIV] disease SNOMED: 27289171 (6) Acute pharyngitis ICD Codes: J02.9 - Acute pharyngitis, unspecified SNOMED: 120826873 (7) Positive cardiac stress test ICD Codes: R94.39 - Abnormal result of other cardiovascular function study SNOMED: 057873321 Assessment/Plan SOB 2/2 bronchitis + pharyngitis + strep on culture + possible CAD, patient high risk with history of HIV - nuclear stress test positive, plan for transfer for cardiac cath - ekgs reviewed and there are new t wave inversions - appreciate ID consult - troponins and ekgs - medical management with asa, statin, bb - abx per ID , on dc plan for ceftin 500 mg PO BId x 5 days HTN - medical management , pt asymptomatic - increase dose of norvasc to 10 mg daily and oreg to 25 mg BID, cont to monitor CKD - baseline cr 1.8 - avoid nephrotoxic meds - use low contrast for cardiac cath HIV - cont home meds History of tobacco abuse - cessation education I have spent 70 minutes in regards to patient care and counseling, and 35 minutes face to face with patient regarding update on his medical condition and results of his test. All questions answered. Subjective Date patient seen: Oct 01, 2018 Time patient seen: 09:30 ROS Limited/Unobtainable: No Allergies: Coded Allergies: No Known Allergies (Verified Allergy, Unknown, 11/27/07) Subjective patient is anxious about results of his stress test, but more relaxed after all his questions were answered. He denies chest pain and sob. States that overall he feels much improved from when he first arrived. Objective Last 24 Hour Vital Signs Date Time Temp Pulse Resp B/P (MAP) Pulse Ox O2 Delivery O2 Flow Rate FiO2 10/01/18 10:04 79 134/96 10/01/18 10:03 79 134/96 10/01/18 09:00 Room Air 10/01/18 08:46 97.8 79 20 134/96 (109) 95 10/01/18 08:22 85 16 Room Air 21 10/01/18 08:00 67 10/01/18 04:00 97.5 76 18 136/95 (109) 95 10/01/18 04:00 71 10/01/18 00:00 76 10/01/18 00:00 98.2 84 18 137/95 (109) 94 09/30/18 21:00 Room Air 09/30/18 20:42 75 142/98 09/30/18 20:12 75 16 Room Air 21 09/30/18 20:00 75 09/30/18 20:00 97.5 79 18 142/98 (113) 95 09/30/18 16:00 97.8 83 20 151/80 (103) 96 09/30/18 16:00 81 09/30/18 12:00 97.8 87 20 143/101 (115) 98 09/30/18 12:00 84 Intake and Output 09/30/18 10/01/18 18:59 06:59 Intake Total 840 ml 200 ml Balance 840 ml 200 ml Intake Oral 840 ml 200 ml # Voids 6 Height (Feet): 6 Height (Inches): 1.00 Weight (Pounds): 230 General Appearance: WD/WN, no apparent distress, alert, lethargic EENT: PERRL/EOMI, normal ENT inspection, pharynx normal Neck: non-tender, normal alignment, supple, normal inspection Cardiovascular: normal peripheral pulses, normal rate, regular rhythm, no JVD Respiratory/Chest: chest wall non-tender, lungs clear, normal breath sounds, no respiratory distress Abdomen: normal bowel sounds, non tender, soft, no organomegaly, no mass Extremities: normal range of motion, non-tender, normal inspection Edema: no edema noted Arm (L), no edema noted Arm (R), no edema noted Leg (L), no edema noted Leg (R), no edema noted Pedal (L), no edema noted Pedal (R), no edema noted 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
[2018-10-01 12:00] VITALS: BP 127/85
--- NOTE | 2018-10-01 12:56 | Infectious Diseases Prog Note ---
Assessment/Plan Assessment/Plan ASSESSMENT AND PLAN: 1. streptococcus group c pharyngitis, uri, bronchitis, chest x-ray negative for pna - ceftin po x 4 days - clinically much improved 2. Human immunodeficiency virus. Check CD4 - 330 and viral load pending - continue anti-retroviral therapy as is - f/u with primary HIV MD - Dr. Lozano 3. EKG changes, workup per Cardiology, stress test versus catheterization - stress test done and +, plan on cath and transfer to [facility] 4. Elevated creatinine, chronic kidney disease, question acute kidney injury. 5. Hypertension. Blood pressure treatment per primary. 6. Question of hyperlipidemia. The patient on lipid treatment. 7. Shortness of breath - improved. 8. f/u on stress camelia 9. No known allergies. 10. Social history, prior smoker. 11. Family history is noncontributory. 12. MAR was noted. 13. Case was discussed with RN. 14. Case discussed with Dr. Herrera. 15. Continue treatment per primary consultants. Subjective Constitutional: Denies: fever HEENT: Reports: other - sig less throat pain ; Denies: congestion Respiratory: Denies: shortness of breath Cardiovascular: Denies: chest pain Gastrointestinal/Abdominal: Denies: nausea, vomiting Genitourinary: Denies: dysuria, hematuria, frequency Neurologic: Denies: headache Psychiatric: Denies: depression Skin: Denies: rash Hematologic: Denies: no symptoms, bleeding Musculoskeletal: Denies: pain Allergies: Coded Allergies: No Known Allergies (Verified Allergy, Unknown, 11/27/07) Objective Vital Signs Last 24 Hour Vital Signs Date Time Temp Pulse Resp B/P (MAP) Pulse Ox O2 Delivery O2 Flow Rate FiO2 10/01/18 12:00 97.7 76 18 127/85 (99) 98 10/01/18 10:04 79 134/96 10/01/18 10:03 79 134/96 10/01/18 09:00 Room Air 10/01/18 08:46 97.8 79 20 134/96 (109) 95 10/01/18 08:22 85 16 Room Air 21 10/01/18 08:00 67 10/01/18 04:00 97.5 76 18 136/95 (109) 95 10/01/18 04:00 71 10/01/18 00:00 76 10/01/18 00:00 98.2 84 18 137/95 (109) 94 09/30/18 21:00 Room Air 09/30/18 20:42 75 142/98 09/30/18 20:12 75 16 Room Air 21 09/30/18 20:00 75 09/30/18 20:00 97.5 79 18 142/98 (113) 95 09/30/18 16:00 97.8 83 20 151/80 (103) 96 09/30/18 16:00 81 Height (Feet): 6 Height (Inches): 1.00 Weight (Pounds): 230 General Appearance: no acute distress HEENT: normocephalic, atraumatic, anicteric, mucous membranes moist Respiratory/Chest: lungs clear, normal breath sounds, no respiratory distress Cardiovascular: normal rate, regular rhythm, no gallop/murmur, no JVD Abdomen: normal bowel sounds, soft, non tender, no organomegaly, non distended Genitourinary: other - no hollis Extremities: no cyanosis Skin: no rash 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 Stable shrapnel seen in left chest wall. Tortuous aorta. The lungs are clear. No pleural effusions. The visualized osseous structures are within normal limits. IMPRESSION: No significant change. Tortuous aorta. Stable shrapnel in left chest wall. Lungs are otherwise clear. Microbiology Date/Time Source Procedure Growth Status 09/28/18 21:50 Throat Throat Culture - Final Streptococcus Group C Usual Jenna Present Complete 09/28/18 05:29 Rectum - Preliminary Resulted Microbiology Date/Time Source Procedure Growth Status 09/28/18 21:50 Throat Throat Culture - Final Streptococcus Group C Usual Jenna Present Complete Labs Test 09/29/18 06:18 09/30/18 09:35 Sodium Level 142 MMOL/L (136-145) 141 MMOL/L (136-145) Potassium Level 4.0 MMOL/L (3.5-5.1) 4.2 MMOL/L (3.5-5.1) Chloride Level 106 MMOL/L (98-107) 105 MMOL/L (98-107) Carbon Dioxide Level 24 MMOL/L (21-32) 26 MMOL/L (21-32) Anion Gap 12 mmol/L (5-15) 10 mmol/L (5-15) Blood Urea Nitrogen 18 mg/dL (7-18) 16 mg/dL (7-18) Creatinine 1.8 MG/DL (0.55-1.30) 1.8 MG/DL (0.55-1.30) Estimat Glomerular Filtration Rate 48.1 mL/min (>60) 48.1 mL/min (>60) Glucose Level 92 MG/DL (74-106) 98 MG/DL (74-106) Calcium Level 9.0 MG/DL (8.5-10.1) 9.4 MG/DL (8.5-10.1) Troponin I 0.017 ng/mL (0.000-0.056) 0.011 ng/mL (0.000-0.056) White Blood Count 5.6 K/UL (4.8-10.8) Red Blood Count 5.27 M/UL (4.70-6.10) Hemoglobin 15.5 G/DL (14.2-18.0) Hematocrit 45.5 % (42.0-52.0) Mean Corpuscular Volume 86 FL (80-99) Mean Corpuscular Hemoglobin 29.3 PG (27.0-31.0) Mean Corpuscular Hemoglobin Concent 34.0 G/DL (32.0-36.0) Red Cell Distribution Width 12.7 % (11.6-14.8) Platelet Count 243 K/UL (150-450) Mean Platelet Volume 7.5 FL (6.5-10.1) Neutrophils (%) (Auto) 50.8 % (45.0-75.0) Lymphocytes (%) (Auto) 35.3 % (20.0-45.0) Monocytes (%) (Auto) 8.9 % (1.0-10.0) Eosinophils (%) (Auto) 3.6 % (0.0-3.0) Basophils (%) (Auto) 1.4 % (0.0-2.0) Phosphorus Level 3.4 MG/DL (2.5-4.9) Magnesium Level 2.1 MG/DL (1.8-2.4) Current Medications Medications (Trade) Dose Ordered Sig/Paula Route PRN Reason Start Time Stop Time Status Last Admin Dose Admin Acetaminophen (Tylenol) 650 mg Q4H PRN ORAL Mild Pain (Pain Scale 1-3) 09/28/18 05:15 10/28/18 05:14 Albuterol/ Ipratropium (Albuterol/ Ipratropium) 3 ml NEEDED PRN HHN Shortness of Breath 09/28/18 05:15 10/03/18 05:14 09/28/18 16:33 Amlodipine Besylate (Norvasc) 10 mg DAILY ORAL 09/30/18 09:00 10/29/18 12:29 10/01/18 10:04 Aspirin (ASA) 81 mg DAILY ORAL 09/28/18 11:30 10/28/18 11:29 10/01/18 10:03 Atorvastatin Calcium (Lipitor) 40 mg BEDTIME ORAL 09/28/18 21:00 10/28/18 20:59 09/30/18 20:42 Carvedilol (Coreg) 25 mg EVERY 12 HOURS ORAL 09/30/18 21:00 10/30/18 20:59 10/01/18 10:03 Cefuroxime Axetil (Ceftin) 500 mg EVERY 12 HOURS ORAL 09/29/18 21:00 10/06/18 20:59 10/01/18 10:03 Clonidine HCl (Catapres Tab) 0.1 mg EVERY 2 HOURS PRN ORAL sbp>170 09/28/18 13:15 10/28/18 13:14 Heparin Sodium (Porcine) (Heparin 5000 units/ml) 5,000 units EVERY 12 HOURS SUBQ 09/28/18 09:00 10/28/18 08:59 10/01/18 10:10 Nitroglycerin (Ntg) 0.4 mg Q5M PRN SL Prn Chest Pain 09/28/18 05:15 10/28/18 05:14 Patient Own Medication (Patient's Own Med) 1 ea DAILY ORAL 09/29/18 09:00 10/29/18 08:59 10/01/18 10:04 Patient Own Medication (Patient's Own Med) 1 ea DAILY ORAL 09/29/18 09:00 10/29/18 08:59 10/01/18 10:04 Digna Naidu MD Oct 01, 2018 12:56
--- NOTE | 2018-10-01 15:29 | Cardiac Electrophysiology PN ---
Assessment/Plan Assessment/Plan 1. Chest pain, abnormal electrocardiogram. Ruled out for myocardial infarction. He has inferolateral T-wave inversion suspicious for inferolateral ischemia. Nuclear stress test was suggestive of ischemia in the inferolateral wall near the base. .Echo EF 55%. Awaiting transfer to [facility] for cardiac cath 2. HIV, on anti-retroviral therapy. 3. Hypertension. Coreg 12.5 bid and Norvasc 10 mg daily DW RN and Dr Herrera Subjective Subjective No CP or SOB. Stress test showed ischemia. RN at bedside. Objective Last 24 Hour Vital Signs Date Time Temp Pulse Resp B/P (MAP) Pulse Ox O2 Delivery O2 Flow Rate FiO2 10/01/18 12:00 97.7 76 18 127/85 (99) 98 10/01/18 12:00 76 10/01/18 10:04 79 134/96 10/01/18 10:03 79 134/96 10/01/18 09:00 Room Air 10/01/18 08:46 97.8 79 20 134/96 (109) 95 10/01/18 08:22 85 16 Room Air 21 10/01/18 08:00 67 10/01/18 04:00 97.5 76 18 136/95 (109) 95 10/01/18 04:00 71 10/01/18 00:00 76 10/01/18 00:00 98.2 84 18 137/95 (109) 94 09/30/18 21:00 Room Air 09/30/18 20:42 75 142/98 09/30/18 20:12 75 16 Room Air 21 09/30/18 20:00 75 09/30/18 20:00 97.5 79 18 142/98 (113) 95 09/30/18 16:00 97.8 83 20 151/80 (103) 96 09/30/18 16:00 81 Intake and Output 09/30/18 10/01/18 18:59 06:59 Intake Total 840 ml 200 ml Balance 840 ml 200 ml Intake Oral 840 ml 200 ml # Voids 6 Microbiology Date/Time Source Procedure Growth Status 09/28/18 21:50 Throat Throat Culture - Final Streptococcus Group C Usual Jenna Present Complete Objective HEAD AND NECK: No JVD or carotid bruit. LUNGS: Clear. CARDIOVASCULAR: Regular S1 and S2 with no gallop or murmur. ABDOMEN: Soft, nontender. EXTREMITIES: No pitting edema. Srikanth Dimas MD Oct 01, 2018 15:29
[2018-10-01 16:00] VITALS: BP 126/99
--- NOTE | 2018-10-02 10:17 | Discharge Summary ---
Discharge Summary Hospital Course Date of Admission Sep 28, 2018 at 04:47 Date of Discharge Oct 01, 2018 at 18:55 Admitting Diagnosis Acute Coronary Syndrome(ACS) Reason for Hospitalization: URI and EKG changes HPI Juan Ramon Valle is a 53 year old male who was admitted on Sep 28, 2018 at 04:47 for Difficulty Breathing Consultations Cardiology: Dr. Dimas Infectious Disease: Dr. Nair Hospital Course 53 yo M PMH of HIV seen by Dr. Lozano outpatient, on HAART therapy, and HTN, CKD? presents for a coughing fit, green phlegm and shortness of breath that began acutely while in a movie theater. Patient's vital signs were stable on admission. CXR WNL. EKG was concerning for diffuse T wave inversions that were new. Troponins initially were 0.033 and then downtrended throughout stay. Patient was admitted to [facility] with cardiology consult. Echo showed normal EF ( see report below). Given patient's high risk and EKG changes Cardiology recommended a nuclear stress test which was positive for reversible defect (see report). Results were discussed with patient who consented for cardiac cath and patient was transferred to [facility] for cath. In regards to patient symptoms of productive cough, he was placed initially on rocephin by Infectious disease and symptoms improved. Pharynx swab was positive for strep with negative blood cultures and repeat CXR on day after admission. Patient was switched to Ceftin for completion of abx course. Patient also found to have CKD with baseline Cr. 1.8. He will need low contrast cath and close monitoring thereafter with renal US to evaluate kidneys if it has not been done before. PCP: Dr. Lozano, HIV specialist ABX Plan: Ceftin 500 mg PO BID x 4 days Discharge Medications New Medications: Amlodipine Besylate (Norvasc) 5 Mg Tablet 10 MG ORAL DAILY for 30 Days, #30 TAB 0 Refills Aspirin* (Aspirin*) 81 Mg Tab.chew 81 MG ORAL DAILY for 30 Days, #30 TAB 0 Refills Atorvastatin Calcium* (Lipitor*) 20 Mg Tablet 40 MG ORAL BEDTIME for 30 Days, #30 TAB 0 Refills Carvedilol (Coreg) 25 Mg Tablet 25 MG ORAL EVERY 12 HOURS for 30 Days, #60 TAB 0 Refills Cefuroxime Axetil* (Cefuroxime*) 250 Mg Tablet 500 MG ORAL EVERY 12 HOURS for 5 Days, #10 TAB 0 Refills Continued Medications: Darunavir Ethanolate (Prezista) 800 Mg Tablet 800 MG PO DAILY, #30 Docusate Sodium* (Colace*) 100 Mg Capsule 100 MG ORAL DAILY for 14 Days, #14 CAP 0 Refills Dolutegravir Sodium (Tivicay) 50 Mg Tablet 50 MG ORAL DAILY, #60 Emtricitabine/Tenofovir (Truvada 200 mg-300 mg Tablet) 1 Tab Tab 300 MG PO DAILY, #30 Entecavir* (Baraclude*) 0.5 Mg Tablet 1 MG ORAL DAILY, TAB (This prescription has been renewed) Fluticasone Propionate (Flonase Allergy Relief) 9.9 Ml [place].susp 9.9 ML NS BID, #1 UNIT Lidocaine (Lidocaine) 1 Each Adh..patch 700 MG TP DAILY, #10 PATCH Ritonavir (Norvir) 100 Mg Tablet 100 MG ORAL DAILY, #30 Sennosides (Senna Laxative) 8.6 Mg Tablet 8.6 MG PO DAILY for 14 Days, #14 TAB 0 Refills Discharge Condition Upon Discharge: stable Discharge Disposition Patient was discharged to [facility] Meredith Herrera DO Oct 02, 2018 10:17
== END 2018-10-01 18:55 | disposition short-term general hospital (02) | DRG 202 ==
LOC: EMR 03:20 → EDBEDREQ 04:34 → 2E 04:47
DX: J20.9 Acute bronchitis, unspecified (principal); B20 Human immunodeficiency virus [HIV] disease; J02.0 Streptococcal pharyngitis; I10 Essential (primary) hypertension; F17.200 Nicotine dependence, unspecified, uncomplicated; E78.5 Hyperlipidemia, unspecified; R94.39 Abnormal result of other cardiovascular function study
CPT/HCPCS: 36415; 71045; 78452; 80048; 80053; 80307; 81003; 82550; 83615; 83735; 83880; 84100; 84484; 85025; 85610; 85730; 86140; 86360; 87070; 87081; 87536; 93005; 93017; 93306; 94664; 96365; 96375; 99285; J2785; J7620

== ENCOUNTER → 2018-12-24 | Outpatient (CLI) | payer MEDICARE, OTHER ==
[~2018-12-24] MED LIST changes: +CEFUROXIME250 MG ORAL; +COREG25 MG ORAL; +LIPITOR20 MG ORAL; +NORVASC5 MG ORAL
--- NOTE | 2018-12-24 12:46 | Diagnostic Imaging Report ---
Indication: Abdominal pain Technique: Continuous helical transaxial imaging of the abdomen and pelvis was obtained from the lung bases to the pubic symphysis. No intravenous contrast was administered. Coronal 2-D reformats were also obtained. Automatic Exposure Control was utilized. Total Dose length Product (DLP): 894.[address] Dose Index Volume (CTDIvol): 16.14 mGy Comparison: 09/14/2017 Findings: There is a dependent basal atelectasis noted. Small gallstone demonstrated. No hydronephrosis or renal stones are identified. No free fluid or free air identified. The bladder is nondistended. The appendix is not definite seen. There are no secondary signs of acute appendicitis. There is an apparent foreign body in the right lateral anterior abdominal wall noted. There is calcification upper margin of the right iliacus muscle. No evidence of bowel obstruction. IMPRESSION: No acute findings Tiny gallstone Foreign body in the right flank abdominal musculature. No significant change from the prior exam. Mild basal atelectasis The CT scanner at [facility] is accredited by the [employer] and the scans are performed using dose optimization techniques as appropriate to a performed exam including Automatic Exposure control.
== END | disposition home or self-care (01) ==
LOC: CAT 09:38
DX: R63.4 Abnormal weight loss (principal); N18.9 Chronic kidney disease, unspecified; R10.9 Unspecified abdominal pain; K80.80 Other cholelithiasis without obstruction; T18.2XXA Foreign body in stomach, initial encounter; J98.11 Atelectasis
CPT/HCPCS: 74176

== ENCOUNTER 2019-04-08 16:30 | Emergency (ER) | payer MEDICARE, OTHER ==
[~2019-04-08] VITALS: Ht 185.4 cm; Wt 98.9 kg
[2019-04-08] MEDS ORDERED: UNOBMED (16:48)
--- NOTE | 2019-04-08 16:50 | NUR ---
ED Nurse Note: Patient walked into ED c/o abscess on right armpit for 3 days.
--- NOTE | 2019-04-08 17:18 | Emergency Room Report ---
History of Present Illness General Chief Complaint: Skin Rash/Abscess Source: Medical Record Present Illness HPI 53-year-old male presents to the emergency department complaining of 5 out of 10 in severity pain localized with swelling, tenderness and erythema to a small lump under the right armpit 3 days. Patient reports he has a history of HIV he is currently taking Atripla he is stating that he just began this medication and he is noticing that he has been having some constipation. He denies abdominal pain or tenderness. Patient denies fevers or chills he states that his viral load is undetectable and his last CD4 count he estimates to be above 4 -500 and has not been a problem. He states he has been using warm compresses at home without relief denies any other relieving factors at this time. He states that he is up-to-date with his tetanus vaccinations. Allergies: Coded Allergies: No Known Allergies (Verified Allergy, Unknown, 11/27/07) Patient History Past Medical History: see triage record, HIV Past Surgical History: none Pertinent Family History: none Immunizations: UTD Reviewed Nursing Documentation: PMH: Agreed; PSxH: Agreed Nursing Documentation-PMH Past Medical History: No History, Except For Hx Hypertension: Yes Hx Pacemaker: No Hx Asthma: No Hx COPD: No Hx Diabetes: No Hx Cancer: No Hx Gastrointestinal Problems: No Hx Dialysis: No Hx Neurological Problems: Yes - HIV Hx Cerebrovascular Accident: No Hx Seizures: No Review of Systems All Other Systems: negative except mentioned in HPI Physical Exam Vital Signs Date Time Temp Pulse Resp B/P (MAP) Pulse Ox O2 Delivery O2 Flow Rate FiO2 04/08/19 16:40 98.6 99 16 98 Room Air Sp02 EP Interpretation: reviewed, normal General Appearance: no apparent distress, alert, GCS 15, non-toxic Head: normocephalic, atraumatic Eyes: bilateral eye normal inspection, bilateral eye PERRL ENT: hearing grossly normal, normal voice Neck: full range of motion Respiratory: lungs clear, normal breath sounds, speaking full sentences Cardiovascular #1: regular rate, rhythm Gastrointestinal: normal bowel sounds, non tender, soft Musculoskeletal: back normal, gait/station normal, normal range of motion, non- tender Neurologic: alert, oriented x3, responsive, motor strength/tone normal, sensory intact, speech normal, grossly normal Psychiatric: judgement/insight normal Skin: no rash, warm/dry, well hydrated, other - 2cm abscess in the right axilla with erythema and fluctuance/ induration. No LAD. Lymphatic: no adenopathy Procedures Incision and Drainage Incision and Drainage : Consent: Verbal Site: Right axilla Blade Size: 11 I & D Procedure: betadine prep, sterile drapes applied, sterile dressing applied Wound Location: axilla Wound's Depth, Shape: superficial Wound Length (cm): 1 Wound Explored: contaminated Anesthesia: Lidocaine w/ Epi Splint Applied?: No Sling Applied?: No Patient Tolerated: Well Complications: None Medical Decision Making PA Attestation Dr. shaw is my supervising Physician whom patient management has been discussed with. Diagnostic Impression: Primary Impression: Abscess of axilla, right Additional Impression: Constipation Qualified Codes: K59.00 - Constipation, unspecified ER Course 53-year-old male presents to the emergency department complaining of 5 out of 10 in severity pain localized with swelling, tenderness and erythema to a small lump under the right armpit 3 days. Patient reports he has a history of HIV he is currently taking Atripla he is stating that he just began this medication and he is noticing that he has been having some constipation. He denies abdominal pain or tenderness. Patient denies fevers or chills he states that his viral load is undetectable and his last CD4 count he estimates to be above 4 -500 and has not been a problem. He states he has been using warm compresses at home without relief denies any other relieving factors at this time. He states that he is up-to-date with his tetanus vaccinations. Ddx considered but are not limited to cellulitis, abscess, cystic acne, necrotizing fasciitis, insect bite. Vital signs: are WNL, pt. is afebrile H&PE are most consistent with Right axilla abscess ORDERS: none required at this time, the diagnosis is clinical ED INTERVENTIONS: -I & D. DISCHARGE: At this time pt. is stable for d/c to home. Will provide printed patient care instructions, and any necessary prescriptions. Care plan and follow up instructions have been discussed with the patient prior to discharge. Last Vital Signs Date Time Temp Pulse Resp B/P (MAP) Pulse Ox O2 Delivery O2 Flow Rate FiO2 04/08/19 16:40 98.6 99 16 98 Room Air Disposition: HOME, SELF-CARE Condition: Stable Scripts Docusate Sodium* (COLACE*) 100 Mg Capsule 100 MG ORAL THREE TIMES A DAY, #30 CAP Prov: Rachel Salmon 04/08/19 Clindamycin Hcl (CLINDAMYCIN HCL) 300 Mg Capsule 300 MG ORAL FOUR TIMES A DAY for 7 Days, #28 CAP Prov: Rachel Salmon 04/08/19 Mupirocin* (MUPIROCIN*) 22 Gm Oint...g. 1 APPLIC TOPIC THREE TIMES A DAY, #22 GM Prov: Rachel Salmon 04/08/19 Patient Instructions: Abscess Additional Instructions: Take medications as directed. Follow up with a Primary Care Provider in 3-5 days, even if your symptoms have resolved. --Please review list of primary care clinics, if you do not already have a primary care provider Return sooner to ED if new symptoms occur, or current symptoms become worse. - Please note that this Emergency Department Report was dictated using [email or web address] specialist technology software, occasionally this can lead to erroneous entry secondary to interpretation by the dictation equipment. Rachel Salmon April 08, 2019 17:18
[2019-04-08] MEDS ORDERED: COLACE100 MG ORAL (17:29)
[2019-04-08] MEDS ORDERED: MUPIROCIN22 GM TOPIC (17:29)
[2019-04-08] MEDS ORDERED: CLINDAMYCIN HC300 MG ORAL (17:29)
[2019-04-08] MEDS ORDERED: Bacitracin Oint UD TOPIC ONE (18:00)
[2019-04-08 18:08] VITALS: BP 121/98
[2019-04-08 18:33] VITALS: BP 121/98
--- NOTE | 2019-04-08 18:34 | NUR ---
ER DISCHARGE NOTE: Patient is cleared to be discharged per LUDA SERNA, pt is aox4, on room air, with stable vital signs. pt was given dc and prescription instructions, pt was able to verbalize understanding, pt id band removed without complications. pt is able to ambulate with steady gait. pt took all belongings.
== END 2019-04-08 18:33 | disposition home or self-care (01) ==
LOC: EMR 17:30
DX: L02.411 Cutaneous abscess of right axilla (principal); K59.00 Constipation, unspecified; B20 Human immunodeficiency virus [HIV] disease; I10 Essential (primary) hypertension
CPT/HCPCS: 99283

== ENCOUNTER 2019-09-28 14:29 | Emergency (ER) | payer MEDICARE, OTHER ==
[~2019-09-28] VITALS: Ht 188 cm; Wt 99.8 kg
[~2019-09-28 14:29] MED LIST changes: +CLINDAMYCIN HC300 MG ORAL; +MUPIROCIN22 GM TOPIC; +UNOBMED
--- NOTE | 2019-09-28 14:41 | NUR ---
ED Nurse Note: Late entry: PT walked into ED with SOB for 3 days sometimes sweating, no S/S of respiratory distress, saturating 96% on RA, no pain reported by PT. PT report he is HIV+ on meds, and has HTN. Will continue to monitor PT.
--- NOTE | 2019-09-28 14:57 | Emergency Room Report ---
History of Present Illness General Chief Complaint: Dyspnea/Respdistress Source: Patient Present Illness HPI 54-year-old male history of HIV greater then 240 CD4 count, undetectable presents with dyspnea, cough, congestion, symptoms have been constant no known aggravating relieving factors severity is moderate, patient is noted and noticed some green sputum production, chills but no fever, no chest pain, no nausea no vomiting no diaphoresis, patient presents for evaluation. He states he has an appointment 10/01/2019 Allergies: Coded Allergies: No Known Allergies (Verified Allergy, Unknown, 11/27/07) Patient History Past Medical History: see triage record Reviewed Nursing Documentation: PMH: Agreed; PSxH: Agreed Nursing Documentation-PMH Hx Cardiac Problems: No - HIV + Hx Hypertension: Yes Hx Pacemaker: No Hx Asthma: No Hx COPD: No Hx Diabetes: No Hx Cancer: No Hx Gastrointestinal Problems: No Hx Dialysis: No Hx Neurological Problems: No Hx Cerebrovascular Accident: No Hx Seizures: No Review of Systems All Other Systems: negative except mentioned in HPI Physical Exam Vital Signs Date Time Temp Pulse Resp B/P (MAP) Pulse Ox O2 Delivery O2 Flow Rate FiO2 09/28/19 14:41 98.6 85 18 164/118 (133) 96 Room Air Sp02 EP Interpretation: reviewed, normal General Appearance: well appearing, no apparent distress, alert Head: normocephalic, atraumatic Eyes: bilateral eye PERRL, bilateral eye EOMI ENT: uvula midline, moist mucus membranes Neck: supple, thyroid normal, supple/symm/no masses Respiratory: lungs clear, no respiratory distress, no retraction, no accessory muscle use Cardiovascular #1: normal peripheral pulses, regular rate, rhythm, no edema, no gallop, no murmur Gastrointestinal: non tender, soft, no guarding, no rebound Musculoskeletal: normal inspection Neurologic: alert, oriented x3 Psychiatric: mood/affect normal Skin: no rash, warm/dry Procedures Critical Care Time Critical Care Time Given the critical condition in which the patient arrived, the patient was immediately assessed by myself and the nurse, and cardiac monitoring initiated due to the potential for rapid decompensation of the patient's clinical condition. During the course of the patient's stay, I spent a considerable amount of time at the bedside performing serial re-evaluations of the patient's hemodynamic and clinical status because of the recognized potential threat to life or limb in this condition. I then had a chance to review not only all of the available current laboratory and radiographic studies obtained today, but I also reviewed old records available to me at the time. Additionally, any ancillary information available including oil scout records were reviewed. Sequential vital signs were obtained. Critical Care time of 31 minutes was performed exclusive of billable procedures. Medical Decision Making Diagnostic Impression: Primary Impression: Dyspnea Qualified Codes: R06.02 - Shortness of breath Additional Impression: NSTEMI (non-ST elevated myocardial infarction) ER Course 54-year-old male presents with dyspnea concerning for possible ACS versus pneumonia versus PE Patient found to have inverted T waves, lateral leads, patient also found to have an elevated troponin, aspirin, Lovenox was started, patient was initially to be admitted to the hospital reevaluation at 5:49 PM, patient wants to leave AGAINST MEDICAL ADVICE as he will follow-up with his PCP The patient has requested to leave the ED against medical advice. The patient reason(s) for leaving include, but are not limited to, the following: wants to follow-up with pcp. I believe this patient is of sound mind and competent to refuse medical care. The patient is responding and asking questions appropriately. The patient is oriented to person, place and time. The patient is not psychotic, delusional, suicidal, homicidal or hallucinating. The patient demonstrates a normal mental capacity to make decisions regarding their healthcare. The patient is clinically sober and does not appear to be under the influence of any illicit drugs at this time. The patient has been advised of the risks, in layman terms, of leaving AMA which include, but are not limited to , coma, permanent disability, loss of current lifestyle, delay in diagnosis. Alternatives have been offered - the patient remains steadfast in their wish to leave. The patient has been advised that should they change their mind they are welcome to return to this hospital, or any other, at any time. The patient understands that in no way does an AMA discharge mean that I do not want them to have the best medical care available. To this end, I have provided appropriate prescriptions, referrals, and discharge instructions. The patient did sign AMA paperwork. The above discussion was witnessed by another member of staff. Laboratory Tests Test 09/28/19 15:00 White Blood Count 5.6 K/UL (4.8-10.8) Red Blood Count 5.30 M/UL (4.70-6.10) Hemoglobin 15.3 G/DL (14.2-18.0) Hematocrit 46.4 % (42.0-52.0) Mean Corpuscular Volume 87 FL (80-99) Mean Corpuscular Hemoglobin 28.8 PG (27.0-31.0) Mean Corpuscular Hemoglobin Concent 32.9 G/DL (32.0-36.0) Red Cell Distribution Width 12.9 % (11.6-14.8) Platelet Count 253 K/UL (150-450) Mean Platelet Volume 7.9 FL (6.5-10.1) Neutrophils (%) (Auto) 48.3 % (45.0-75.0) Lymphocytes (%) (Auto) 42.6 % (20.0-45.0) Monocytes (%) (Auto) 6.5 % (1.0-10.0) Eosinophils (%) (Auto) 1.4 % (0.0-3.0) Basophils (%) (Auto) 1.3 % (0.0-2.0) Prothrombin Time 10.5 SEC (9.30-11.50) Prothrombin Time INR 1.0 (0.9-1.1) PTT 27 SEC (23-33) Sodium Level 143 MMOL/L (136-145) Potassium Level 4.4 MMOL/L (3.5-5.1) Chloride Level 106 MMOL/L (98-107) Carbon Dioxide Level 33 MMOL/L (21-32) H Anion Gap 4 mmol/L (5-15) L Blood Urea Nitrogen 20 mg/dL (7-18) H Creatinine 1.5 MG/DL (0.55-1.30) H Estimate Glomerular Filtration Rate 59.1 mL/min (>60) Glucose Level 94 MG/DL (74-106) Calcium Level 9.2 MG/DL (8.5-10.1) Total Bilirubin 0.6 MG/DL (0.2-1.0) Aspartate Amino Transferase (AST) 118 U/L (15-37) H Alanine Aminotransferase (ALT) 116 U/L (12-78) H Alkaline Phosphatase 59 U/L (46-116) Troponin I 0.089 ng/mL (0.000-0.056) Pro-B-Type Natriuretic Peptide 277 pg/mL (0-125) H Total Protein 7.4 G/DL (6.4-8.2) Albumin 4.0 G/DL (3.4-5.0) Globulin 3.4 g/dL Albumin/Globulin Ratio 1.2 (1.0-2.7) Lipase 182 U/L (73-393) Urine Opiates Screen Negative (NEGATIVE) Urine Barbiturates Screen Negative (NEGATIVE) Phencyclidine (PCP) Screen Negative (NEGATIVE) Urine Amphetamines Screen Negative (NEGATIVE) Urine Benzodiazepines Screen Negative (NEGATIVE) Urine Cocaine Screen Negative (NEGATIVE) Urine Marijuana (THC) Screen Negative (NEGATIVE) EKG Diagnostic Results EKG Time: 15:13 EP Interpretation: NSR, rate 67, QTc 439, no acute ST elevations, normal axis ST Segments: other - Flipped T waves V5 V6 1, 2, aVL Rhythm Strip Diag. Results Rhythm Strip Time: 16:33 EP Interpretation: yes Rate: 73 Rhythm: NSR, no PVC's, no ectopy Chest X-Ray Diagnostic Results Chest X-Ray Diagnostic Results : Chest X-Ray Ordered: Yes # of Views/Limited/Complete: 1 View Indication: Shortness of Breath EP Interpretation: Yes Interpretation: no consolidation, no effusion, no pneumothorax, no acute cardiopulmonary disease Impression: No acute disease Electronically Signed by: Damián Diaz MD Last Vital Signs Date Time Temp Pulse Resp B/P (MAP) Pulse Ox O2 Delivery O2 Flow Rate FiO2 09/28/19 14:41 98.6 85 18 164/118 (133) 96 Room Air Disposition: AGAINST MEDICAL ADVICE Condition: Stable Scripts Aspirin* (ASPIR 81*) 81 Mg Tablet. 81 MG ORAL DAILY, #30 TAB Prov: Damián Diaz MD 09/28/19 Referrals: [facility]. [facility] Patient Instructions: Non-ST Segment Elevation Heart Attack, Shortness of Breath, [id number] Additional Instructions: The patient was provided with discharge instructions, notified to follow-up with a primary care doctor and or specialist in the next 24-48 hours, and to return to the ED if they have worsening of their symptoms. Please note that this report is being documented using [employer] technology. This can lead to erroneous entry secondary to incorrect interpretation by the dictating instrument. Damián Diaz MD Sep 28, 2019 14:57
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
[2019-09-28 15:51] LABS: BASOPHILS % (AUTO) 1.3 % (0.0-2.0); EOSINOPHILS % (AUTO) 1.4 % (0.0-3.0); HEMATOCRIT 46.4 % (42.0-52.0); HEMOGLOBIN 15.3 G/DL (14.2-18.0); LYMPHOCYTES % (AUTO) 42.6 % (20.0-45.0); MEAN CORPUSCULAR VOLUME 87 FL (80-99); MONOCYTES % (AUTO) 6.5 % (1.0-10.0); NEUTROPHILS % (AUTO) 48.3 % (45.0-75.0); PLATELET COUNT 253 K/UL (150-450); RED CELL DISTRIBUTION WIDTH 12.9 % (11.6-14.8); WHITE BLOOD COUNT 5.6 K/UL (4.8-10.8)
[2019-09-28 15:58] LABS: ANION GAP 4 mmol/L (5-15); BLOOD UREA NITROGEN 20 mg/dL (7-18); CALCIUM 9.2 MG/DL (8.5-10.1); CARBON DIOXIDE 33 MMOL/L (21-32); CHLORIDE 106 MMOL/L (98-107); CREATININE 1.5 MG/DL (0.55-1.30); POTASSIUM 4.4 MMOL/L (3.5-5.1); SODIUM 143 MMOL/L (136-145)
[2019-09-28 16:08] LABS: ALANINE AMINOTRANSFERASE 116 U/L (12-78); ALBUMIN/GLOBULIN RATIO 1.2 (1.0-2.7); ALKALINE PHOSPHATASE 59 U/L (46-116); ASPARTATE AMINO TRANSFERASE 118 U/L (15-37); BILIRUBIN,TOTAL 0.6 MG/DL (0.2-1.0)
[2019-09-28] MEDS ORDERED: Enoxaparin 100mg Inj SUBQ ONE (16:30)
[2019-09-28 16:38] VITALS: BP 164/118
[2019-09-28 17:33] VITALS: BP 166/115
--- NOTE | 2019-09-28 17:35 | NUR ---
ED Nurse Note: PT in bed, sleeping, on RA no respiratory distress noted.
--- NOTE | 2019-09-28 17:45 | NUR ---
ED Nurse Note: PT ambulated by himself to the bathroom safely, and is back in bed,
[2019-09-28] MEDS ORDERED: ASPIR 8181 MG ORAL (17:50)
--- NOTE | 2019-09-28 17:52 | NUR ---
AMA: SEE AMA FORM. PT signed AMA form personally, at 1750, made aware, acknowledged and signed AMA form also.
[2019-09-28 18:02] VITALS: BP 169/117
== END 2019-09-28 17:50 | disposition left against medical advice (07) ==
LOC: EMR 15:20
DX: I21.4 Non-ST elevation (NSTEMI) myocardial infarction (principal); R06.00 Dyspnea, unspecified; B20 Human immunodeficiency virus [HIV] disease; I10 Essential (primary) hypertension
CPT/HCPCS: 36415; 71045; 80053; 80307; 83690; 83880; 84484; 85025; 85610; 85730; 93005; 96360; 96372; 99284; J1650; J7030

== ENCOUNTER 2020-01-29 04:56 | Emergency (ER) | payer MEDICARE, OTHER ==
[~2020-01-29] VITALS: Ht 185.4 cm; Wt 97.5 kg
[~2020-01-29 04:56] MED LIST changes: +ASPIR 8181 MG ORAL
[2020-01-29 05:10] VITALS: BP 159/91
--- NOTE | 2020-01-29 05:10 | NUR ---
ED Nurse Note: Pt walked into ED from home for c/o cough and congestion x4 days. Pt states he was having trouble sleeping tonight due to cough and congestion which made him come to the ED. Pt also reports it feels like mucous is in the back of his throat and has a sore throat. Pt is breathing normal and unlabored. Pt is aaox4, no acute distress noted. Pt denies any pain.
[2020-01-29] MEDS ORDERED: MUCINEX600 MG PO (05:22)
[2020-01-29] MEDS ORDERED: ALBUTEROL SULF8.5 GM INH (05:22)
[2020-01-29] MEDS ORDERED: TYLENOL EXTRA500 MG ORAL (05:22)
[2020-01-29] MEDS ORDERED: IBUPROFEN600 MG ORAL (05:22)
[2020-01-29] MEDS ORDERED: FLONASE ALLERG9.9 ML NS (05:22)
[2020-01-29 05:25] VITALS: BP 159/91
--- NOTE | 2020-01-29 05:25 | NUR ---
ER DISCHARGE NOTE: Patient is cleared to be discharged per ERMD, pt is aox4, on room air, with stable vital signs. pt was given dc and prescription instructions, pt was able to verbalize understanding, pt id band removed. pt is able to ambulate with steady gait. pt took all belongings.
--- NOTE | 2020-01-29 05:29 | Emergency Room Report ---
History of Present Illness General Chief Complaint: Dyspnea/Respdistress Source: Patient Present Illness HPI Disclaimer: Please note that this report is being documented using [employer] technology. This can lead to erroneous entry secondary to incorrect interpretation by the dictating instrument. HPI: 54-year-old male with history of HIV presents for evaluation of nasal congestion and postnasal drip. Patient states he has been fighting a cold for approximately 4 days. He notes nasal congestion, sore throat and a feeling of phlegm in his throat particularly when laying down to go to sleep. He had difficulty sleeping this morning prompting emergency department visit. He is already made an appointment with his PMD for next week. Patient recently had blood work 1 week ago stating that his viral load is undetectable and his other cell counts are appropriate. He denies any fevers, chills, swollen glands, chest pain, shortness of breath, palpitations, cough, wheezing, abdominal pain, nausea, vomiting, diarrhea. He is also requesting an albuterol inhaler and some medications to help with his nasal congestion. While he denies any history of asthma he states that typically when he gets a cold he uses albuterol inhalers to help dry secretions and helps him recover faster. PMH: HIV PSH: Tonsillectomy and uvulectomy Allergies: Denies Social Hx: Non-smoker Allergies: Coded Allergies: No Known Allergies (Verified Allergy, Unknown, 11/27/07) Nursing Documentation-PMH Hx Cardiac Problems: No - HIV + Hx Hypertension: Yes Hx Pacemaker: No Hx Asthma: No Hx COPD: No Hx Diabetes: No Hx Cancer: No Hx Gastrointestinal Problems: No Hx Dialysis: No Hx Neurological Problems: No Hx Cerebrovascular Accident: No Hx Seizures: No Review of Systems All Other Systems: negative except mentioned in HPI Physical Exam Vital Signs Date Time Temp Pulse Resp B/P (MAP) Pulse Ox O2 Delivery O2 Flow Rate FiO2 01/29/20 05:00 98.1 87 20 159/91 (113) 95 Room Air General: Awake and alert, no acute distress HEENT: NC/AT. EOMI. PERRLA. Anicteric sclera. No scleral injection. Moist mucous membranes. Status post uvulectomy. Pharynx is slightly erythematous but no edema, no exudate. No significant sinus tenderness across the frontal, ethmoid or maxillary sinuses. Neck: Supple, trachea midline no lymphadenopathy Chest Wall: No tenderness, no deformity Cardiovascular: RRR. S1 and S2 normal. No murmur appreciated Resp: Normal work of breathing. No cough, wheezing or crackles appreciated Skin: Intact. No abrasions, laceration or rash over the exposed skin MSK: Normal tone and bulk. Moving all extremities. No obvious deformity. Neuro: Awake and alert. Mentating appropriately. Medical Decision Making Diagnostic Impression: Primary Impression: Upper respiratory infection ER Course 54-year-old male presents for evaluation of nasal congestion and sore throat. No other signs of infection and denies fevers, difficulty breathing, wheezing, cough. History and physical exam more consistent with an upper respiratory tract infection, most likely viral. He rest with stable vital signs, breathing comfortably and in no acute distress. Given the patient's symptoms and physical exam I do not believe he requires emergent labs or imaging at this time. He is denying any chest pain, dyspnea, cough or other concerning signs or symptoms. States his recent blood work was within normal limits regarding his HIV status. We will treat symptomatically with decongestions, NSAIDs and give him the albuterol inhaler he was requesting. He has an appointment to follow-up with his PMD next week. We discussed reasons to return to the emergency department. He understands and agrees with this treatment plan. Last Vital Signs Date Time Temp Pulse Resp B/P (MAP) Pulse Ox O2 Delivery O2 Flow Rate FiO2 01/29/20 05:10 87 20 Room Air 01/29/20 05:10 98.1 159/91 95 Disposition: HOME, SELF-CARE Condition: Stable Scripts Acetaminophen* (TYLENOL EXTRA STRENGTH*) 500 Mg Tablet 500 MG ORAL Q8H PRN for Prn Headache/Temp > 101, #30 TAB 0 Refills Prov: Chao Diana MD 01/29/20 Guaifenesin (Mucinex) 600 Mg Tab.er.12h 600 MG PO BID for 5 Days, #10 TAB Prov: Chao Diana MD 01/29/20 Ibuprofen* (MOTRIN*) 600 Mg Tablet 600 MG ORAL Q8H PRN for For Pain, #30 TAB 0 Refills Prov: Chao Diana MD 01/29/20 Albuterol Sulfate* (ALBUTEROL SULFATE MDI*) 8.5 Gm Hfa.aer.ad 2 PUFF INH Q4H PRN for cough/wheezing, #1 EA 0 Refills Prov: Chao Diana MD 01/29/20 Fluticasone Propionate (Flonase Allergy Relief) 9.9 Ml [place].susp 9.9 ML NS BID, #1 UNIT Prov: Chao Diana MD 01/29/20 Referrals: NOT CHOSEN IPA/,REFERRING (PCP) Patient Instructions: Upper Respiratory Infection, Adult Additional Instructions: Use the medications as prescribed to help treat your symptoms and help you recover from your upper respiratory infection. Please follow-up with your primary doctor as scheduled next week. If you develop high fevers, shortness of breath, persistent coughing, severe diarrhea or any other sudden changes in your health return to the emergency department for reevaluation. Chao Diana MD Jan 29, 2020 05:29
== END 2020-01-29 05:25 | disposition home or self-care (01) ==
LOC: EMR 05:21
DX: J06.9 Acute upper respiratory infection, unspecified (principal); I10 Essential (primary) hypertension; Z21 Asymptomatic human immunodeficiency virus [HIV] infection status
CPT/HCPCS: 99282